=== PATIENT | female | born 1935 | race Caucasian/White ===

== ENCOUNTER 2017-04-13 23:10 | Inpatient (IN) | payer OTHER, MEDICARE ==
[2017-04-13] MEDS ORDERED: ASPIRIN 81 MG CHEWABLE TABLETS PO ONE (23:30)
--- NOTE | 2017-04-13 23:54 | PDOC ---
History of Present Illness - General Chief Complaint: Seizure Stated Complaint: POST SEIZURE Time Seen by Provider: 04/13/17 23:17 History Source: Patient, EMS, Family (daughter) - History of Present Illness Initial Comments: 04/13/17 23:46 The patient is a 81F with a PMH of TIA, a-fib on eliquis, and renal insufficiency who presents to the ED via EMS. The history was provided by EMS and the patient's daughter. The daughter states that the patient was sitting up in her daybed and the daughter was giving her her daily intranasal medications. After giving the second medication, she states that the patient began shaking and her eyes rolled in the back of her head. This lasted for 45-50 seconds. This has never happened before. The patient does not remember this happening. However, she was oriented when she awoke from this episode. The daughter denies any tongue biting. The patient denies any aura or lightheadedness before this episode. Surgeries: none recent Allergies: none Social: quit smoking 3 years ago, does not drink or use recreational drugs Past History - Past Medical History Allergies/Adverse Reactions: Allergies Allergy/AdvReac Type Severity Reaction Status Date / Time No Known Allergies Allergy Verified 04/13/17 23:29 Home Medications: Ambulatory Orders Apixaban [Eliquis] 2.5 mg PO BID 07/22/14 Rosuvastatin Calcium [Crestor] 10 mg PO DAILY 07/22/14 Atenolol [Tenormin -] 50 mg PO BID #60 tablet 09/29/14 Betamethasone Dipr 0.05% Oint [Diprolene] 50 gm TP ASDIR PRN 02/05/15 Fluticasone Propionate [Flovent Diskus] 50 mcg IH BID 02/05/15 Sertraline HCl [Zoloft -] 50 mg PO DAILY 02/05/15 Furosemide [Lasix -] 40 mg PO BID@0600,1400 #60 tablet 02/15/15 Potassium Chloride [K-Dur -] 40 meq PO DAILY #60 tablet.er 02/15/15 Hydrocortisone 2.5% Topical Cr [Anusol-Hc -] 1 applic TP BID #1 tube 04/27/15 Ferrous Sulfate [Feosol] 325 mg PO BID 12/30/15 Ranitidine HCl [Zantac] 150 mg PO ASDIR 12/30/15 Anemia: Yes Asthma: No Cancer: No Cardiac Disorders: Yes (AFIB, ASHD) CVA: (TIA/CVA) COPD: Yes (OXYGEN 3LPM N/C CONTINUOUSLY.) CHF: Yes Dementia: No Diabetes: No GI Disorders: No Disorders: No HTN: Yes Hypercholesterolemia: Yes Liver Disease: No Suicide Attempt (Hx): No Seizures: No Thyroid Disease: No - Surgical History Abdominal Surgery: No Appendectomy: No Cardiac Surgery: (ANGIOGRAM WITH VASCULAR CLOSURE DEVICE RT GROIN) Cholecystectomy: No Lung Surgery: No Neurologic Surgery: No Orthopedic Surgery: Yes (B/L KNEE ARTHROSCOPIES) - Immunization History Immunization Up to Date: Yes - Psycho/Social/Smoking Cessation Hx Anxiety: No Suicidal Ideation: No Smoking Status: Yes Smoking History: Unknown if ever smoked Have you smoked in the past 12 months: No Number of Cigarettes Smoked Daily: 3 If you are a former smoker, when did you quit?: 30 Information on smoking cessation initiated: No 'Breaking Loose' booklet given: 04/25/15 Hx Alcohol Use: No Drug/Substance Use Hx: No Substance Use Type: None Hx Substance Use Treatment: No Review of Systems - Review of Systems Able to Perform ROS?: Yes Is the patient limited [place] proficient: No Constitutional: Yes: Weakness. No: Chills, Fever Respiratory: No: Shortness of Breath Cardiac (ROS): No: Chest Pain ABD/GI: No: Other (abd pain) : No: Burning, Dysuria, Discharge Neurological: No: Headache, Numbness, Tingling *Physical Exam - Vital Signs Last Vital Signs Temp Pulse Resp BP Pulse Ox 97.7 F 89 18 111/73 96 04/13/17 23:29 04/13/17 23:29 04/13/17 23:29 04/13/17 23:29 04/13/17 23:29 Heart Score/ECG Review - QRS Widened: LBBB - ECG Impressions Tachycardia: Afib w/controlled rate Comment:: 04/13/17 23:56 a-fib with RVR ED Treatment Course - LABORATORY CBC & Chemistry Diagram: 04/13/17 23:52 04/13/17 23:52 - RADIOLOGY Radiology Studies Ordered: Category Date Time Status HEAD CT WITHOUT CONTRAST [CT] Stat CT Scan 04/13/17 23:35 Ordered CHEST PA & LAT [RAD] Stat Radiology 04/13/17 23:31 Ordered Medical Decision Making - Medical Decision Making 04/13/17 23:56 Patient is a 81F with a PMH of TIA, a-fib on eliquis, and chronic kidney disease who presents to the ED after a syncopal episode. Her EKG showed a-fib with some RVR. I have ordered a cardiac workup and a head CT. I will monitor for updates and keep the patient posted on results. 04/14/17 01:28 Patient states she is feeling better. Head CT shows 2 small areas of old infarct and one small area in superior L parietal lobe of indeterminate age. *DC/Admit/Observation/Transfer Diagnosis at time of Disposition: Near syncope Chronic renal failure Qualifiers: Chronic kidney disease stage: unspecified stage Qualified Code(s): N18.9 - Chronic kidney disease, unspecified Afib Qualifiers: Atrial fibrillation type: chronic Qualified Code(s): I48.2 - Chronic atrial fibrillation - Discharge Dispostion Admit: Yes - Referrals Referrals: Pepe Jamison MD [Primary Care Provider] - - Transfer to Acute Care Facility Accepting Physician:: barby
[2017-04-14] MEDS ORDERED: ASPIRIN 81 MG CHEWABLE TABLETS ONE
[2017-04-14 00:10] LABS: BASOPHIL 0.4 % (0-2.0); EOSINOPHIL 2.2 % (0-4.5); MCH 30.3 pg (25.7-33.7); MCHC 32.6 g/dl (32.0-36.0); MEAN PLT VOLUME 9.2 fl (7.5-11.1); NEUTROPHILS 74.1 % (42.8-82.8); PLATELET COUNT 136 K/MM3 (134-434); RDW 14.7 % (11.6-15.6); WHITE BLOOD COUNT 5.2 K/mm3 (4.0-10.0)
[2017-04-14 00:21] LABS: INR 1.37 (0.82-1.09); PROTHROMBIN TIME (PATIENT) 15.2 SEC (9.98-11.88)
[2017-04-14 00:32] LABS: ANION GAP 10 (8-16); BILIRUBIN,TOTAL 0.6 mg/dL (0.2-1.0); CALCIUM 9.2 mg/dL (8.5-10.1); CO2 24 mmol/L (21-32); CREATININE 1.7 mg/dL (0.55-1.02); GLUCOSE,RANDOM 118 mg/dL (74-106); MAGNESIUM 2.5 mg/dL (1.8-2.4); SGOT/AST 28 U/L (15-37); SGPT/ALT 17 U/L (12-78); TOT PROT 7.6 g/dl (6.4-8.2)
[2017-04-14 00:35] LABS: ALK PHOS 124 U/L (45-117); TROPONIN I < 0.02 ng/ml (0.00-0.05)
[2017-04-14 04:49] VITALS: BMI 25.5
[2017-04-14 08:24] LABS: MCH 30.6 pg (25.7-33.7); MCHC 33.1 g/dl (32.0-36.0); MEAN CELL VOLUME 92.5 fl (80-96); MEAN PLT VOLUME 9.2 fl (7.5-11.1); PLATELET COUNT 123 K/MM3 (134-434); RDW 14.9 % (11.6-15.6); WHITE BLOOD COUNT 4.8 K/mm3 (4.0-10.0)
--- NOTE | 2017-04-14 08:36 | CON.NEURO ---
Consult - History of Present Illness History of Present Illness: pisode of passing out and shaking 81 year old female hsitory of atrial fibrillation , tia and renal disease. She came to hospital while her daughter was giving her medication intranasally and was puting intranasal catheter for oxygen. Patient suddenly became unresponsive , and she had shaking of upper extremity. Patient says it lasted few seconds while chart it is documented 45-50 seconds. Patients never had seizures. there was no tongue bite , incontinence or post ictal confusion. there was no aura . 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 TIA ?CVA ?? Loo's) Cardio/Vascular: Yes: AFIB (s/p DC cardioversion, now back in AFIB), CHF, HTN, Hyperlipdemia, Mitral Insufficiency, Pulmonary Hypertension Gastrointestinal: Yes: Gastritis Renal/: Yes: Renal Failure, Renal Inusuff (baseline creatinine around 2-2.5) - Past Surgical History Past Surgical History: Yes: Colonoscopy (and EGD 04/14) - Alcohol/Substance Use Hx Alcohol Use: No - Smoking History Smoking history: Former smoker Have you smoked in the past 12 months: No Aproximately how many cigarettes per day: 3 If you are a former smoker, when did you quit?: 2013 - Social History ADL: Independent 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) History of Recent Travel: No Home Medications - Allergies Allergies/Adverse Reactions: Allergies Allergy/AdvReac Type Severity Reaction Status Date / Time No Known Allergies Allergy Verified 04/13/17 23:29 - Home Medications Home Medications: Ambulatory Orders Apixaban [Eliquis] 2.5 mg PO BID 07/22/14 Rosuvastatin Calcium [Crestor] 10 mg PO DAILY 07/22/14 Atenolol [Tenormin -] 50 mg PO BID #60 tablet 09/29/14 Betamethasone Dipr 0.05% Oint [Diprolene] 50 gm TP ASDIR PRN 02/05/15 Fluticasone Propionate [Flovent Diskus] 50 mcg IH BID 02/05/15 Sertraline HCl [Zoloft -] 50 mg PO DAILY 02/05/15 Furosemide [Lasix -] 40 mg PO BID@0600,1400 #60 tablet 02/15/15 Potassium Chloride [K-Dur -] 40 meq PO DAILY #60 tablet.er 02/15/15 Hydrocortisone 2.5% Topical Cr [Anusol-Hc -] 1 applic TP BID #1 tube 04/27/15 Ferrous Sulfate [Feosol] 325 mg PO BID 12/30/15 Ranitidine HCl [Zantac] 150 mg PO ASDIR 12/30/15 Family Disease History - Family Disease History Family Disease History: Heart Disease: Mother, CA: Father (colon), Brother ( colon), Sister (colon) Physical Exam-Neuro Vital Signs: Vital Signs Temperature 98.7 F 04/14/17 03:30 Pulse Rate 73 04/14/17 06:00 Respiratory Rate 18 04/14/17 06:00 Blood Pressure 97/57 04/14/17 06:00 O2 Sat by Pulse Oximetry (%) 98 04/14/17 02:48 Labs: CBC, BMP 04/14/17 05:55 INR, PTT INR 1.37 (0.82-1.09) H 04/13/17 23:52 NIH Stroke Scale - Total Score NIH Stroke Scale Score: 0 Imaging - Results Cat Scan: Report Reviewed Assessment/Plan cc episode of passing out and shaking 81 year old female hsitory of atrial fibrillation , tia and renal disease. She came to hospital while her daughter was giving her medication intranasally and was puting intranasal catheter for oxygen. Patient suddenly became unresponsive , and she had shaking of upper extremity. Patient says it lasted few seconds while chart it is documented 45-50 seconds. Patients never had seizures. there was no tongue bite , incontinence or post ictal confusion. there was no aura . no allergies past medical history as above. no recent surgery outpatient medication Neurological Examination Alert Oriented x 3, follow command eomi and face is symmetrical and speech is normal moving all extremity 5/5 all four ext sensation is normal grossly reflex are generalized diminished ct head unremarkable Assessment- brief episode of shaking and passing out ( ? syncope), since this is first episode and no clearcut evidence in favor of epileptic seizurs , would refrain from starting AED. Plan suggest to do mri of brain and eeg - continue tele monitoring as per Primary Team Thanking you so much Byron Baires MD Neurologist
[2017-04-14 08:39] LABS: ALBUMIN 3.6 g/dl (3.4-5.0); ANION GAP 8 (8-16); BILIRUBIN,TOTAL 0.4 mg/dL (0.2-1.0); CALCIUM 9.4 mg/dL (8.5-10.1); CO2 26 mmol/L (21-32); CREATININE 1.6 mg/dL (0.55-1.02); GLUCOSE,RANDOM 96 mg/dL (74-106); MAGNESIUM 2.4 mg/dL (1.8-2.4); PHOSPHOROUS 3.9 mg/dL (2.5-4.9); SGOT/AST 22 U/L (15-37); SGPT/ALT 16 U/L (12-78); TOT PROT 7.1 g/dl (6.4-8.2)
[2017-04-14 08:42] LABS: ALK PHOS 110 U/L (45-117); TROPONIN I 0.03 ng/ml (0.00-0.05)
[2017-04-14] MEDS: RANITIDINE HCL 150 MG TABLET (FP) PO SCH (09:41)
[2017-04-14] MEDS: FERROUS SO4 325 MG TABLET (FP) PO SCH ×2 (09:41→21:43)
[2017-04-14] MEDS: SERTRALINE HCL 50 MG TABLET (FP) PO SCH (09:41)
[2017-04-14] MEDS: POTASSIUM CHLORIDE TABS 20 MEQ TABLET.ER (FP) PO SCH (09:41)
[2017-04-14] MEDS: APIXABAN 2.5 MG TABLET PO SCH ×2 (09:41→21:43)
[2017-04-14] MEDS: FUROSEMIDE 40 MG TABLET (FP) PO SCH ×2 (11:02→11:21)
[2017-04-14] MEDS: ATENOLOL 50 MG TABLET (FP) PO SCH ×3 (11:02→21:43)
--- NOTE | 2017-04-14 12:02 | HP ---
Admitting History and Physical - Primary Care Physician PCP: Pepe Jamison - Admission Chief Complaint: I don't know what happened History of Present Illness: Ms Correa is a very pleasant 81 year old female who came in with an episode of presyncope/syncope. She was sitting in bed last night and her daughter was assisting giving her intranasal medication. She says during this administration she became woozy. She said it lasted a few seconds and resolved. After that she felt normal. Per note the daughter stated her eyes rolled back and she appeared to about to pass out. Aside from this Ms Correa says she is feeling fine. She denies fevers, chills, passing out, shaking, confusion, chest pain or pressure, shortness of breath, nausea, vomiting, diarrhea, constipation, difficulty or pain on urination, or swelling. 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 TIA ?CVA ?? Loo's) Cardiovascular: Yes: AFIB (s/p DC cardioversion, now back in AFIB), CHF, HTN, Hyperlipdemia, Mitral Insufficiency, Pulmonary Hypertension Gastrointestinal: Yes: Gastritis Renal/: Yes: Renal Failure, Renal Inusuff (baseline creatinine around 2-2.5) Heme/Onc: Yes: Anemia - Past Surgical History Past Surgical History: Yes: Colonoscopy (and EGD 04/14) - Smoking History Smoking history: Former smoker Have you smoked in the past 12 months: No Aproximately how many cigarettes per day: 3 If you are a former smoker, when did you quit?: 2013 - Alcohol/Substance Use Hx Alcohol Use: No History of Substance Use: reports: None - Social History Usual Living Arrangement: Yes: With Child ADL: Independent 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) History of Recent Travel: No Home Medications - Allergies Allergies/Adverse Reactions: Allergies Allergy/AdvReac Type Severity Reaction Status Date / Time No Known Allergies Allergy Verified 04/13/17 23:29 - Home Medications Home Medications: Ambulatory Orders Apixaban [Eliquis] 2.5 mg PO BID 07/22/14 Rosuvastatin Calcium [Crestor] 10 mg PO DAILY 07/22/14 Atenolol [Tenormin -] 50 mg PO BID #60 tablet 09/29/14 Betamethasone Dipr 0.05% Oint [Diprolene] 50 gm TP ASDIR PRN 02/05/15 Fluticasone Propionate [Flovent Diskus] 50 mcg IH BID 02/05/15 Sertraline HCl [Zoloft -] 50 mg PO DAILY 02/05/15 Furosemide [Lasix -] 40 mg PO BID@0600,1400 #60 tablet 02/15/15 Potassium Chloride [K-Dur -] 40 meq PO DAILY #60 tablet.er 02/15/15 Hydrocortisone 2.5% Topical Cr [Anusol-Hc -] 1 applic TP BID #1 tube 04/27/15 Ferrous Sulfate [Feosol] 325 mg PO BID 12/30/15 Ranitidine HCl [Zantac] 150 mg PO ASDIR 12/30/15 Family Disease History - Family Disease History Family Disease History: Heart Disease: Mother, CA: Father (colon), Brother ( colon), Sister (colon) Review of Systems Findings/Remarks: Full review of system obtained, as per HPI and otherwise negative Physical Examination Vital Signs: Vital Signs Temperature 98 F 04/14/17 09:00 Pulse Rate 78 04/14/17 10:40 Respiratory Rate 20 04/14/17 10:40 Blood Pressure 123/68 04/14/17 10:40 O2 Sat by Pulse Oximetry (%) 98 04/14/17 02:48 Constitutional: Yes: Well Nourished, No Distress, Calm Eyes: Yes: Conjunctiva Clear, EOM Intact, PERRL HENT: Yes: Atraumatic, Normocephalic Neck: Yes: Other (no carotid bruit) Cardiovascular: Yes: Pulse Irregular. No: Tachycardia, Gallop, Murmur, Rub Respiratory: Yes: Regular, CTA Bilaterally. No: Rales, Rhonchi, Wheezes Gastrointestinal: Yes: Normal Bowel Sounds, Soft. No: Distention, Tenderness Extremities: Yes: WNL Edema: No Labs: CBC, BMP 04/14/17 05:55 04/14/17 05:55 Imaging - Results Chest X-ray: Report Reviewed, Image Reviewed Problem List - Problems (1) Near syncope Assessment/Plan: -patient with possible syncope -appreciate neurology assistance -mri and eeg -obtain echo and carotid ultrasound -continue telemetry monitoring, possible tachycardia or arrhythmia -orthostatic vital signs since on lasix -cardiology evaluation -PT consult Code(s): R55 - SYNCOPE AND COLLAPSE (2) Afib Assessment/Plan: -controlled -continue atenolol and eliquis Code(s): I48.91 - UNSPECIFIED ATRIAL FIBRILLATION Qualifiers: Atrial fibrillation type: chronic Qualified Code(s): I48.2 - Chronic atrial fibrillation (3) Chronic renal failure Assessment/Plan: -at baseline -continue lasix since with CHF -monitor Code(s): N18.9 - CHRONIC KIDNEY DISEASE, UNSPECIFIED Qualifiers: Chronic kidney disease stage: unspecified stage Qualified Code(s): N18.9 - Chronic kidney disease, unspecified (4) CHF (congestive heart failure) Assessment/Plan: -unsure if systolic or diastolic -continue lasix -obtain ECHO -cardiology to see Code(s): I50.9 - HEART FAILURE, UNSPECIFIED Qualifiers: Congestive heart failure chronicity: chronic (5) HTN (hypertension) Assessment/Plan: -low normal today -will hold atenolol and lasix until later to see if improves Code(s): I10 - ESSENTIAL (PRIMARY) HYPERTENSION (6) Hyperlipidemia Assessment/Plan: -continue crestor Code(s): E78.5 - HYPERLIPIDEMIA, UNSPECIFIED
--- NOTE | 2017-04-14 12:54 | CON.CARD ---
Cardiology Consult (text) - Consultation Consultation Note: cc: possible seizure hpi: 81 f hx mild dementia, dchf, afib, cva (occurred when off ac for procedure ), ckd (cr around 1.5-2), htn, hld, here with possible seizure. Livers with daughter and last night was laying in bed and daughter was giving her evening meds. Pt was feeling well, no sxs. Then all of sudden daughter said she starting shaking and her eyes rolled back. She did not appear to pass out. Less than a minute this stopped and she was back to her normal self, no complaints. Brought to er for eval. No hx of such episodes. No cp, sob, palps , dizzy, pnd, orthopnea, le edema. Sees me for cardio. pmh: per hpi psh: hysterectomy social: no toxic habits fam hx: non contributory ros: per hpi; no nvd, cough, fever, nasal congestion, mathew, vision changes, gib, hematuria, dysuria, muscle pains meds: Home Medications Medication Instructions Recorded Apixaban [Eliquis] 2.5 mg PO BID 07/22/14 Rosuvastatin Calcium [Crestor] 10 mg PO DAILY 07/22/14 Atenolol [Tenormin -] 50 mg PO BID #60 tablet 09/29/14 Betamethasone Dipr 0.05% Oint 50 gm TP ASDIR PRN 02/05/15 [Diprolene] Fluticasone Propionate [Flovent 50 mcg IH BID 02/05/15 Diskus] Sertraline HCl [Zoloft -] 50 mg PO DAILY 02/05/15 Furosemide [Lasix -] 40 mg PO BID@0600,1400 #60 tablet 02/15/15 Potassium Chloride [K-Dur -] 40 meq PO DAILY #60 tablet.er 02/15/15 Hydrocortisone 2.5% Topical Cr 1 applic TP BID #1 tube 04/27/15 [Anusol-Hc -] Ferrous Sulfate [Feosol] 325 mg PO BID 12/30/15 Ranitidine HCl [Zantac] 150 mg PO ASDIR 12/30/15 pe: Vital Signs Period Temp Pulse Resp BP Sys/[place] Pulse Ox Last 24 Hr 97.7 F-98.7 F 66-89 18-20 90-123/50-73 96-98 nad, no jvd irreg, s1s2 no mrg cta bl, nl eff awake alert appropriate no le e/c/c abd nt nd pos bs pos dp/pt, no carotid bruits no diaphoresis, no jaundice Laboratory Last Values WBC 4.8 K/mm3 (4.0-10.0) 04/14/17 05:55 RBC 3.87 M/mm3 (3.60-5.2) 04/14/17 05:55 Hgb 11.8 GM/dL (10.7-15.3) 04/14/17 05:55 Hct 35.8 % (32.4-45.2) 04/14/17 05:55 MCV 92.5 fl (80-96) 04/14/17 05:55 MCH 30.6 pg (25.7-33.7) 04/14/17 05:55 MCHC 33.1 g/dl (32.0-36.0) 04/14/17 05:55 RDW 14.9 % (11.6-15.6) 04/14/17 05:55 Plt Count 123 K/MM3 (134-434) L 04/14/17 05:55 MPV 9.2 fl (7.5-11.1) 04/14/17 05:55 Neutrophils % 74.1 % (42.8-82.8) 04/13/17 23:52 Lymphocytes % 15.3 % (8-40) D 04/13/17 23:52 Monocytes % 8.0 % (3.8-10.2) 04/13/17 23:52 Eosinophils % 2.2 % (0-4.5) 04/13/17 23:52 Basophils % 0.4 % (0-2.0) 04/13/17 23:52 INR 1.37 (0.82-1.09) H 04/13/17 23:52 Sodium 141 mmol/L (136-145) 04/14/17 05:55 Potassium 4.1 mmol/L (3.5-5.1) 04/14/17 05:55 Chloride 107 mmol/L (98-107) 04/14/17 05:55 Carbon Dioxide 26 mmol/L (21-32) 04/14/17 05:55 Anion Gap 8 (8-16) 04/14/17 05:55 BUN 37 mg/dL (7-18) H 04/14/17 05:55 Creatinine 1.6 mg/dL (0.55-1.02) H 04/14/17 05:55 Creat Clearance w eGFR 30.94 (>60) 04/14/17 05:55 Random Glucose 96 mg/dL (74-106) 04/14/17 05:55 Calcium 9.4 mg/dL (8.5-10.1) 04/14/17 05:55 Phosphorus 3.9 mg/dL (2.5-4.9) D 04/14/17 05:55 Magnesium 2.4 mg/dL (1.8-2.4) 04/14/17 05:55 Total Bilirubin 0.4 mg/dL (0.2-1.0) D 04/14/17 05:55 AST 22 U/L (15-37) D 04/14/17 05:55 ALT 16 U/L (12-78) 04/14/17 05:55 Alkaline Phosphatase 110 U/L (45-117) 04/14/17 05:55 Creatine Kinase 38 IU/L (26-192) 04/14/17 05:55 Troponin I 0.03 ng/ml (0.00-0.05) 04/14/17 05:55 Total Protein 7.1 g/dl (6.4-8.2) 04/14/17 05:55 Albumin 3.6 g/dl (3.4-5.0) 04/14/17 05:55 ecg 04/14/17: afib, vr 80s, old lbbb ÁLVARO 01/2013: mod mr, mild-mod tr, trace ar Echo 08/2014: nl lv s/f, nl rv s/f, sev mr, mod-sev tr, mod ai, mod pi, rvsp 50 -60 echo 06/2015: nl lv size, low nl lvef, septal wma c/w lbbb, nl rv, mild sheldon, mod mr, mild ar, mild-mod tr/pr, rvsp mod elevated echo 10/2016: afib, nl lv size, low nl lvef, septal wma c/w lbbb, nl rv, mild sheldon, mod mr, mild ar, minimal , mild tr, mod pr, mild phtn mibi 03/2013: nl mpi carotids 03/2014: mild dz, no sig stenosis carotids 10/2016: mod dz, no sig stenosis.eg cxr: clear lungs a/p: 81 f hx mild dementia, dchf, afib, cva (occurred when off ac for procedure ), ckd (cr around 1.5-2), htn, hld, here with possible seizure. possible syncope vs seizure: -description seems more seizure like -no acute findings on head ct -neuro following and ordered mri brain and eeg -recent office echo and carotids without etiology -ce's neg x2, no signs acs -can monitor on tele, check orthostatics chronic diastolic chf: -Remains euvolemic on current maintenance lasix, continue same. Mitral regurg, ar, tr, pr: -Stable symptoms, nl lv/rv size/fcn on recent echo. Continue lasix. afib: -Rate controlled on bb. H/o prior TIA/CVA may have occurred in the setting of AC being held for egd and colonoscopy. Continue eliquis at low dose. No significant bleeding issues. HTN: Cont home meds. hld: Continue statin. ckd: -cr at baseline
--- NOTE | 2017-04-14 16:24 | EKG ---
Test Reason : Blood Pressure : / mmHG Vent. Rate : 088 BPM Atrial Rate : 147 BPM P-R Int : 000 ms QRS Dur : 144 ms QT Int : 446 ms P-R-T Axes : 000 -65 124 degrees QTc Int : 539 ms ATRIAL FIBRILLATION LEFT AXIS DEVIATION LEFT BUNDLE BRANCH BLOCK ABNORMAL ECG WHEN COMPARED WITH ECG OF 25-APR-2015 11:46, QUESTIONABLE CHANGE IN QRS AXIS NONSPECIFIC T WAVE ABNORMALITY NOW EVIDENT IN INFERIOR LEADS CORELATE CLINICALLY. Confirmed by MIKA DOCKERY MD ([id number]) on 04/14/2017 4:24:02 PM Referred By: Confirmed By:MIKA DOCKERY MD
[2017-04-14] MEDS: MOMETASONE FUROATE 220 MCG/IH INHALER IH SCH (21:41)
[2017-04-14] MEDS ORDERED: ROSUVASTATIN CA 10 MG TABLET (FP) PO SCH (22:00)
[2017-04-15] MEDS: FUROSEMIDE 40 MG TABLET (FP) PO SCH ×2 (06:02→14:15)
[2017-04-15 07:28] LABS: BASOPHIL 0.9 % (0-2.0); EOSINOPHIL 2.7 % (0-4.5); MCH 30.5 pg (25.7-33.7); MCHC 32.9 g/dl (32.0-36.0); MEAN CELL VOLUME 92.7 fl (80-96); MEAN PLT VOLUME 9.6 fl (7.5-11.1); NEUTROPHILS 75.8 % (42.8-82.8); PLATELET COUNT 135 K/MM3 (134-434); RDW 14.8 % (11.6-15.6)
[2017-04-15 07:48] LABS: ANION GAP 9 (8-16); CALCIUM 9.8 mg/dL (8.5-10.1); CO2 23 mmol/L (21-32); CREATININE 1.5 mg/dL (0.55-1.02); GLUCOSE,RANDOM 94 mg/dL (74-106); MAGNESIUM 2.5 mg/dL (1.8-2.4); PHOSPHOROUS 3.7 mg/dL (2.5-4.9)
--- NOTE | 2017-04-15 08:21 | PN ---
Progress Note (short form) - Note Progress Note: cc episode of passing out and shaking 81 year old female hsitory of atrial fibrillation , tia and renal disease. She came to hospital while her daughter was giving her medication intranasally and was puting intranasal catheter for oxygen. Patient suddenly became unresponsive , and she had shaking of upper extremity. Patient says it lasted few seconds while chart it is documented 45-50 seconds. Patients never had seizures. there was no tongue bite , incontinence or post ictal confusion. there was no aura . 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 Plan suggest to increase dose of anticoagulation dose and statin dose Thanking you so much Byron Baires MD Neurologist
[2017-04-15] MEDS: POTASSIUM CHLORIDE TABS 20 MEQ TABLET.ER (FP) PO SCH (09:05)
[2017-04-15] MEDS: FERROUS SO4 325 MG TABLET (FP) PO SCH ×2 (09:05→21:32)
[2017-04-15] MEDS: ATENOLOL 50 MG TABLET (FP) PO SCH ×2 (09:05→21:49)
[2017-04-15] MEDS: RANITIDINE HCL 150 MG TABLET (FP) PO SCH (09:05)
[2017-04-15] MEDS: SERTRALINE HCL 50 MG TABLET (FP) PO SCH (09:05)
[2017-04-15] MEDS: APIXABAN 2.5 MG TABLET PO SCH ×2 (09:06→21:32)
[2017-04-15] MEDS ORDERED: ROSUVASTATIN CA 10 MG TABLET (FP) PO SCH (10:50)
--- NOTE | 2017-04-15 10:56 | PN ---
Progress Note (short form) - Note Progress Note: s: feels well, walking in hallway with PT earlier. No cp sob palps dizzy o: Vital Signs Period Temp Pulse Resp BP Sys/[place] Pulse Ox Last 24 Hr 97.6 F-98.4 F 70-100 18-20 100-124/5-75 96-97 nad, no jvd irreg, s1s2 no mrg cta bl, nl eff awake alert appropriate no le e/c/c abd nt nd pos bs no diaphoresis, no jaundice Current Medications Generic Name Dose Route Start Last Admin Trade Name Freq PRN Reason Stop Dose Admin Apixaban 2.5 mg 04/14/17 10:00 04/15/17 09:06 Eliquis - PO 2.5 mg BID NABEEL Administration Atenolol 50 mg 04/14/17 10:00 04/15/17 09:05 Tenormin - PO 50 mg BID NABEEL Administration Ferrous Sulfate 325 mg 04/14/17 10:00 04/15/17 09:05 Feosol - PO 325 mg BID NABEEL Administration Furosemide 40 mg 04/15/17 06:00 04/15/17 06:02 Lasix - PO 40 mg BIDLASIX NABEEL Administration Mometasone Furoate 1 puff 04/14/17 22:00 04/14/17 21:41 Asmanex 220mcg - IH 1 puff HS NABEEL Administration Potassium Chloride 40 meq 04/14/17 10:00 04/15/17 09:05 K-Dur - PO 40 meq DAILY NABEEL Administration Ranitidine HCl 150 mg 04/14/17 10:00 04/15/17 09:05 Zantac - PO 150 mg DAILY NABEEL Administration Rosuvastatin Calcium 20 mg 04/15/17 10:50 Crestor - PO HS NABEEL Sertraline HCl 50 mg 04/14/17 10:00 04/15/17 09:05 Zoloft - PO 50 mg DAILY NABEEL Administration CBC, BMP 04/15/17 05:35 04/15/17 05:35 ecg 04/14/17: afib, vr 80s, old lbbb ÁLVARO 01/2013: mod mr, mild-mod tr, trace ar Echo 08/2014: nl lv s/f, nl rv s/f, sev mr, mod-sev tr, mod ai, mod pi, rvsp 50 -60 echo 06/2015: nl lv size, low nl lvef, septal wma c/w lbbb, nl rv, mild shledon, mod mr, mild ar, mild-mod tr/pr, rvsp mod elevated echo 10/2016: afib, nl lv size, low nl lvef, septal wma c/w lbbb, nl rv, mild sheldon, mod mr, mild ar, minimal , mild tr, mod pr, mild phtn mibi 03/2013: nl mpi carotids 03/2014: mild dz, no sig stenosis carotids 10/2016: mod dz, no sig stenosis.eg cxr: clear lungs tele: afib, rate controlled a/p: 81 f hx mild dementia, dchf, afib, cva (occurred when off ac for procedure ), ckd (cr around 1.5-2), htn, hld, here with possible seizure. possible syncope vs seizure, acute cva: -description seems more seizure like -MRI shows small acute cva -will increase crestor from 10 to 20 as rec'd by neuro -recent office echo and carotids without etiology -ce's neg x2, no signs acs -tele and orthostatics unremarkable here chronic diastolic chf: -Remains euvolemic on current maintenance lasix, continue same. Mitral regurg, ar, tr, pr: -Stable symptoms, nl lv/rv size/fcn on recent echo. Continue lasix. afib: -Rate controlled on bb. -H/o prior TIA/CVA may have occurred in the setting of AC being held for egd and colonoscopy. -Given her age, wt, and cr, the rec'd dose of eliquis is 2.5 bid, so would continue at the recommended dose. Could add anti-plt such as asa if neuro feels may be of benefit. HTN: Cont home meds. hld: Continue statin. Increased dose as above. ckd: -cr at baseline
--- NOTE | 2017-04-15 12:22 | PN ---
Progress Note, Physician Chief Complaint: Ms Correa is without complaint. No cp, sob, n/v. - Current Medication List Current Medications: Active Medications Apixaban (Eliquis -) 2.5 mg PO BID [facility] Last Admin: 04/15/17 09:06 Dose: 2.5 mg Aspirin (Asa -) 81 mg PO DAILY [facility] Atenolol (Tenormin -) 50 mg PO BID [facility] Last Admin: 04/15/17 09:05 Dose: 50 mg Ferrous Sulfate (Feosol -) 325 mg PO BID [facility] Last Admin: 04/15/17 09:05 Dose: 325 mg Furosemide (Lasix -) 40 mg PO BIDLASIX [facility] Last Admin: 04/15/17 06:02 Dose: 40 mg Mometasone Furoate (Asmanex 220mcg -) 1 puff IH HS [facility] Last Admin: 04/14/17 21:41 Dose: 1 puff Potassium Chloride (K-Dur -) 40 meq PO DAILY [facility] Last Admin: 04/15/17 09:05 Dose: 40 meq Ranitidine HCl (Zantac -) 150 mg PO DAILY [facility] Last Admin: 04/15/17 09:05 Dose: 150 mg Rosuvastatin Calcium (Crestor -) 20 mg PO HS [facility] Sertraline HCl (Zoloft -) 50 mg PO DAILY [facility] Last Admin: 04/15/17 09:05 Dose: 50 mg - Objective Vital Signs: Vital Signs Temperature 98 F 04/15/17 10:00 Pulse Rate 68 04/15/17 10:00 Respiratory Rate 18 04/15/17 10:00 Blood Pressure 108/60 04/15/17 10:00 O2 Sat by Pulse Oximetry (%) 96 04/15/17 06:00 Constitutional: Yes: Well Nourished, No Distress, Calm Cardiovascular: Yes: Pulse Irregular. No: Tachycardia, Gallop, Murmur, Rub Respiratory: Yes: Regular, CTA Bilaterally. No: Rales, Rhonchi, Wheezes Extremities: Yes: WNL Edema: No Labs: INR, PTT INR 1.37 (0.82-1.09) H 04/13/17 23:52 Problem List - Problems (1) Near syncope Code(s): R55 - SYNCOPE AND COLLAPSE (2) Afib Code(s): I48.91 - UNSPECIFIED ATRIAL FIBRILLATION Qualifiers: Atrial fibrillation type: chronic Qualified Code(s): I48.2 - Chronic atrial fibrillation (3) Chronic renal failure Code(s): N18.9 - CHRONIC KIDNEY DISEASE, UNSPECIFIED Qualifiers: Chronic kidney disease stage: unspecified stage Qualified Code(s): N18.9 - Chronic kidney disease, unspecified (4) CHF (congestive heart failure) Code(s): I50.9 - HEART FAILURE, UNSPECIFIED Qualifiers: Congestive heart failure type: diastolic Congestive heart failure chronicity: chronic Qualified Code(s): I50.32 - Chronic diastolic ( congestive) heart failure (5) HTN (hypertension) Code(s): I10 - ESSENTIAL (PRIMARY) HYPERTENSION (6) Hyperlipidemia Code(s): E78.5 - HYPERLIPIDEMIA, UNSPECIFIED Assessment/Plan (1) Acute CVA Assessment/Plan: -found on MRI -neurology note reviewed -increased crestor -unable to increase eliquis, on max dose for age and renal function -will add baby aspirin -PT seeing -carotid ultrasound performed, had recent ECHO as an outpatient -consult speech therapy Code(s): R55 - SYNCOPE AND COLLAPSE (2) Afib Assessment/Plan: -controlled -continue atenolol and eliquis Code(s): I48.91 - UNSPECIFIED ATRIAL FIBRILLATION Qualifiers: Atrial fibrillation type: chronic Qualified Code(s): I48.2 - Chronic atrial fibrillation (3) Chronic renal failure Assessment/Plan: -at baseline -continue lasix since with CHF -monitor Code(s): N18.9 - CHRONIC KIDNEY DISEASE, UNSPECIFIED Qualifiers: Chronic kidney disease stage: unspecified stage Qualified Code(s): N18.9 - Chronic kidney disease, unspecified (4) CHF (congestive heart failure) Assessment/Plan: -appreciate cardiology assistance -chronic diastolic dysfunction, not in exacerbation -continue lasix Code(s): I50.9 - HEART FAILURE, UNSPECIFIED Qualifiers: Congestive heart failure chronicity: chronic (5) HTN (hypertension) Assessment/Plan: -well controlled -continue lasix and atenolol Code(s): I10 - ESSENTIAL (PRIMARY) HYPERTENSION (6) Hyperlipidemia Assessment/Plan: -crestor increased -lipid profile added to morning labs Code(s): E78.5 - HYPERLIPIDEMIA, UNSPECIFIED
--- NOTE | 2017-04-15 13:42 | CONSULT ---
Admitting History and Physical - Primary Care Physician PCP: Raleigh Jackson - Admission History of Present Illness: Per EMR: -" Admission Chief Complaint: I don't know what happened History of Present Illness: Ms Correa is a very pleasant 81 year old female who came in with an episode of presyncope/syncope. She was sitting in bed last night and her daughter was assisting giving her intranasal medication. She says during this administration she became woozy. She said it lasted a few seconds and resolved. After that she felt normal. Per note the daughter stated her eyes rolled back and she appeared to about to pass out. Aside from this Ms Correa says she is feeling fine. She denies fevers, chills, passing out, shaking, confusion, chest pain or pressure, shortness of breath, nausea, vomiting, diarrhea, constipation, difficulty or pain on urination, or swelling." Selected Entries 04/14/17 04/14/17 04/14/17 02:48 03:30 09:00 Breakfast Diet Tolerated Lunch Supper Temperature 98.1 F 98.7 F 98 F 04/14/17 04/14/17 04/14/17 13:57 13:58 18:00 Breakfast 100% Diet Tolerated Well Well Lunch 100% Supper 100% Temperature 97.7 F 97.6 F 04/14/17 04/15/17 04/15/17 22:00 02:00 06:00 Breakfast Diet Tolerated Lunch Supper Temperature 97.9 F 98.0 F 98.4 F 04/15/17 04/15/17 10:00 11:48 Breakfast 100% Diet Tolerated Well Lunch Supper Temperature 98 F Laboratory Tests 04/14/17 04/15/17 05:55 05:35 WBC 4.8 5.0 History Source: Patient Limitations to Obtaining History: No Limitations - Past Medical History [employer]: Yes: CVA, TIA (hx of transient left facial weakness; ? TIA ?CVA ?? Loo's) Cardiovascular: Yes: AFIB (s/p DC cardioversion, now back in AFIB), CHF, HTN, Hyperlipdemia, Mitral Insufficiency, Pulmonary Hypertension Gastrointestinal: Yes: Gastritis Renal/: Yes: Renal Failure, Renal Inusuff (baseline creatinine around 2-2.5) Heme/Onc: Yes: Anemia - Past Surgical History Past Surgical History: Yes: Colonoscopy (and EGD 04/14) - Smoking History Smoking history: Former smoker Have you smoked in the past 12 months: No Aproximately how many cigarettes per day: 3 If you are a former smoker, when did you quit?: 2013 - Alcohol/Substance Use Hx Alcohol Use: No History of Substance Use: reports: None - Social History ADL: Independent 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) History of Recent Travel: No History - Admission Reason For Visit: CHRONIC RENAL FAILURE AFIB NEAR SYNCOPE - Diagnostics X-ray: Report Reviewed CT Scan: Report Reviewed MRI: Report Reviewed - General Mental Status: Alert and Oriented, Awake and Alert, Able to Follow Commands, Vague Ability to Follow Directions: Excellent Head/Neck Control: WFL - Hearing Hearing: Normal Speech Evaluation - Communication Primary Language: CHINESE Communication: Yes: Within Normal Limits Oral Expression Ability: Yes: No Impairment - Speech Production Able to Make Needs Known: Yes: WNL Intelligibility: Yes: WNL - Speech Characteristics Voice Loudness: Normal Voice Pitch: Yes: Normal Voice Phonatory-based Quality: Yes: Normal Speech Pattern: Normal Speech Clarity: < 100% Nasal Resonance: Normal Articulation: Yes: Precise Rate of Speech: Intact - Language/Auditory Comprehension Follows: Yes: Complex Commands - Language/Verbal Expression Able to Respond to Simple Queries: Yes: WNL Able to Communicate Wants and Needs: Yes: WNL Functional Communication Status: Yes: WNL - Memory/Perception adjunct faculty for medical terminology Memory: Yes: WNL Short Term Memory: Yes: WNL - Swallow Evaluation/Bedside Assessment Current Nutritional Intake: Regular, Thin Liquids Oral Secretions: Yes: WFL Dentition: Yes: Missing Teeth Facial Symmetry at Rest: Symmetrical Facial Symmetry on Retraction: Symmetrical Facial Movement: Controlled Sensation: Normal Against Resistance Opening: Normal Against Resistance Closing: Normal Pucker Lips: Normal Smile: Normal Lingual Movement: Normal, Symmetric Lingual Speed of Movement: Normal Lingual Movement Strgth Against Opposition: Normal Lingual Movement Characteristics: Normal Soft Palate Description: Normal Symmetry Hard Palate Description: Normal Symmetry Velopharyngeal Movement: Normal Laryngeal Elevation: WFL Laryngeal Movement: Able to Palpate Rate of Intake: WFL Bolus Size: WFL Labial Seal: WFL Chewing: WFL Oral Prep Time: WFL A-P Transit: WFL Pocketing: None Timing of Swallow: WFL Coughing/Throat Clear: No Change in Voice: No Recommendations - Speech Evaluation, Impression/Plan Impression: Speech/language/swallowing/cognition intact - Dysphagia Impressions/Plan Swallowing Skills: WFL Dysphagia Impressions: No Impairment *Silent aspiration: cannot be R/O at bedside - Recommendations Diet Consistency: Regular Medication Administration: Whole with water Liquids: Thin Liquids
[2017-04-15 15:33] LABS: CHOLESTEROL 133 mg/dL (50-200); LDL CHOLESTEROL (ONLY SJRH) 74 mg/dL (5-100)
[2017-04-15] MEDS: MOMETASONE FUROATE 220 MCG/IH INHALER IH SCH (21:38)
[2017-04-16] MEDS: FUROSEMIDE 40 MG TABLET (FP) PO SCH ×2 (06:14→13:10)
[2017-04-16 07:30] LABS: BASOPHIL 0.8 % (0-2.0); EOSINOPHIL 3.2 % (0-4.5); MCHC 33.6 g/dl (32.0-36.0); MEAN CELL VOLUME 92.1 fl (80-96); MEAN PLT VOLUME 9.1 fl (7.5-11.1); NEUTROPHILS 73.6 % (42.8-82.8); PLATELET COUNT 119 K/MM3 (134-434); RDW 14.7 % (11.6-15.6); WHITE BLOOD COUNT 5.1 K/mm3 (4.0-10.0)
[2017-04-16 07:35] LABS: ANION GAP 9 (8-16); CALCIUM 9.6 mg/dL (8.5-10.1); CO2 27 mmol/L (21-32); CREATININE 1.4 mg/dL (0.55-1.02); GLUCOSE,RANDOM 87 mg/dL (74-106); MAGNESIUM 2.5 mg/dL (1.8-2.4); PHOSPHOROUS 3.4 mg/dL (2.5-4.9)
[2017-04-16] MEDS: SERTRALINE HCL 50 MG TABLET (FP) PO SCH (09:01)
[2017-04-16] MEDS: FERROUS SO4 325 MG TABLET (FP) PO SCH (09:01)
[2017-04-16] MEDS: POTASSIUM CHLORIDE TABS 20 MEQ TABLET.ER (FP) PO SCH (09:01)
[2017-04-16] MEDS: RANITIDINE HCL 150 MG TABLET (FP) PO SCH (09:01)
[2017-04-16] MEDS: APIXABAN 2.5 MG TABLET PO SCH (09:01)
--- NOTE | 2017-04-16 09:15 | PN ---
Progress Note (short form) - Note Progress Note: cc episode of passing out and shaking 81 year old female hsitory of atrial fibrillation , tia and renal disease. She came to hospital while her daughter was giving her medication intranasally and was puting intranasal catheter for oxygen. Patient suddenly became unresponsive , and she had shaking of upper extremity. Patient says it lasted few seconds while chart it is documented 45-50 seconds. Patients never had seizures. there was no tongue bite , incontinence or post ictal confusion. there was no aura . 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, work up has been negative, and no more symptoms and her statin has been increase dand apsirin has been added Neurological Examination Alert Oriented x 3, follow command eomi and face is symmetrical and speech is normal moving all extremity 5/5 all four ext sensation is normal grossly reflex are generalized diminished exam unchanged since yesterday ct head unremarkable mri of brain acute stroke was noticed cartoid ultrasound no stenosis Assessment- brief episode of shaking and passing out could be due to acute stroke, though this is not a typical presentation of stroke or mri findings could be incidental. confur with primary team , increasing dose of statin and adding aspirin , it was discussed with patient there is no active issue from neuro point of view and would see prn Thanking you so much Byron Baires MD Neurologist
[2017-04-16 09:59] VITALS: TEMP 98.4
[2017-04-16] MEDS ORDERED: ASPIRIN 81 MG CHEWABLE TABLETS PO SCH (10:00)
[2017-04-16] MEDS: ATENOLOL 50 MG TABLET (FP) PO SCH (10:02)
--- NOTE | 2017-04-16 11:54 | PN ---
Progress Note, [employer] SURVEYOR - Note Progress Note: Pt is tolerating diet without difficulty. Selected Entries 04/15/17 04/15/17 04/15/17 11:48 14:00 19:14 Breakfast 100% Lunch 75% Supper 75% Temperature 04/16/17 04/16/17 04/16/17 01:00 06:15 09:00 Breakfast Lunch Supper Temperature 97.3 F L 97.8 F 98.4 F Laboratory Tests 04/16/17 05:35 WBC 5.1 No further fr/u indicated at this time.
--- NOTE | 2017-04-16 12:15 | PN ---
Progress Note (short form) - Note Progress Note: s: feels well. No cp sob palps dizzy o: Vital Signs Period Temp Pulse Resp BP Sys/[place] Pulse Ox Last 24 Hr 97.3 F-98.4 F 72-80 18-20 90-117/40-72 95-95 nad, no jvd irreg, s1s2 no mrg cta bl, nl eff awake alert appropriate no le e/c/c abd nt nd pos bs no diaphoresis, no jaundice Current Medications Generic Name Dose Route Start Last Admin Trade Name Freq PRN Reason Stop Dose Admin Apixaban 2.5 mg 04/14/17 10:00 04/16/17 09:01 Eliquis - PO 2.5 mg BID NABEEL Administration Aspirin 81 mg 04/16/17 10:00 04/16/17 09:01 Asa - PO 81 mg DAILY NABEEL Administration Atenolol 50 mg 04/14/17 10:00 04/16/17 10:02 Tenormin - PO 50 mg BID NABEEL Administration Ferrous Sulfate 325 mg 04/14/17 10:00 04/16/17 09:01 Feosol - PO 325 mg BID NABEEL Administration Furosemide 40 mg 04/15/17 06:00 04/16/17 06:14 Lasix - PO 40 mg BIDLASIX NABEEL Administration Mometasone Furoate 1 puff 04/14/17 22:00 04/15/17 21:38 Asmanex 220mcg - IH 1 puff HS NABEEL Administration Potassium Chloride 40 meq 04/14/17 10:00 04/16/17 09:01 K-Dur - PO 40 meq DAILY NABEEL Administration Ranitidine HCl 150 mg 04/14/17 10:00 04/16/17 09:01 Zantac - PO 150 mg DAILY NABEEL Administration Rosuvastatin Calcium 20 mg 04/15/17 10:50 04/15/17 21:32 Crestor - PO 20 mg HS NABEEL Administration Sertraline HCl 50 mg 04/14/17 10:00 04/16/17 09:01 Zoloft - PO 50 mg DAILY NABEEL Administration CBC, BMP 04/16/17 05:35 04/16/17 05:35 ecg 04/14/17: afib, vr 80s, old lbbb ÁLVARO 01/2013: mod mr, mild-mod tr, trace ar Echo 08/2014: nl lv s/f, nl rv s/f, sev mr, mod-sev tr, mod ai, mod pi, rvsp 50 -60 echo 06/2015: nl lv size, low nl lvef, septal wma c/w lbbb, nl rv, mild sheldon, mod mr, mild ar, mild-mod tr/pr, rvsp mod elevated echo 10/2016: afib, nl lv size, low nl lvef, septal wma c/w lbbb, nl rv, mild sheldon, mod mr, mild ar, minimal , mild tr, mod pr, mild phtn echo [facility] 03/2017: sev dec lvef, global hk, mod dil rv, mod reduced rv fcn, mod sheldon, sev mr, mod ar, small eff-->on my review there is septal wma c/w lbbb and lvef is moderately reduced. MR appears more moderate. mibi 03/2013: nl mpi carotids 03/2014: mild dz, no sig stenosis carotids 10/2016: mod dz, no sig stenosis.eg cxr: clear lungs tele: afib, rate controlled a/p: 81 f hx mild dementia, dchf, afib, cva (occurred when off ac for procedure ), ckd (cr around 1.5-2), htn, hld, here with possible seizure. possible syncope vs seizure, acute cva: -description seems more seizure like -MRI shows small acute cva -will increase crestor from 10 to 20 as rec'd by neuro -recent office echo and carotids without etiology -ce's neg x2, no signs acs -tele and orthostatics unremarkable here chronic diastolic/systolic chf: -echo here reviewed, shows moderately reduced lvef. -Remains euvolemic on current maintenance lasix, continue same. -cont bb. -has ckd and low bp so cannot tolerate susan/arb or hydralazine/imdur for chf regimen Mitral regurg, ar, tr, pr: -Stable symptoms, similar findings on current echo on my review. Continue lasix. afib: -Rate controlled on bb. -H/o prior TIA/CVA may have occurred in the setting of AC being held for egd and colonoscopy. -Given her age, wt, and cr, the rec'd dose of eliquis is 2.5 bid, so would continue at the recommended dose. Could add anti-plt such as asa if neuro feels may be of benefit. HTN: Cont home meds. hld: Continue statin. Increased dose as above. ckd: -cr at baseline cardiac goodrich stable for dc
--- NOTE | 2017-04-16 12:33 | DS ---
Physical Examination Vital Signs: Vital Signs Temperature 98.4 F 04/16/17 09:00 Pulse Rate 79 04/16/17 10:04 Respiratory Rate 18 04/16/17 09:00 Blood Pressure 114/64 04/16/17 10:04 O2 Sat by Pulse Oximetry (%) 95 04/16/17 09:00 Constitutional: Yes: Well Nourished, No Distress, Calm Cardiovascular: Yes: Regular Rate and Rhythm. No: Gallop, Murmur, Rub Respiratory: Yes: Regular, CTA Bilaterally. No: Rales, Rhonchi, Wheezes Gastrointestinal: Yes: Normal Bowel Sounds, Soft. No: Distention, Tenderness Extremities: Yes: WNL Edema: No Labs: CBC, BMP 04/16/17 05:35 04/16/17 05:35 Discharge Summary Reason For Visit: CHRONIC RENAL FAILURE AFIB NEAR SYNCOPE Current Active Problems Afib (Acute) Near syncope (Acute) Chronic renal failure (Chronic) Hospital Course: (1) Acute CVA Code(s): R55 - SYNCOPE AND COLLAPSE (2) Afib Code(s): I48.91 - UNSPECIFIED ATRIAL FIBRILLATION Qualifiers: Atrial fibrillation type: chronic Qualified Code(s): I48.2 - Chronic atrial fibrillation (3) Chronic renal failure Code(s): N18.9 - CHRONIC KIDNEY DISEASE, UNSPECIFIED Qualifiers: Chronic kidney disease stage: unspecified stage Qualified Code(s): N18.9 - Chronic kidney disease, unspecified (4) CHF (congestive heart failure) Code(s): I50.9 - HEART FAILURE, UNSPECIFIED Qualifiers: Congestive heart failure chronicity: chronic (5) HTN (hypertension) Code(s): I10 - ESSENTIAL (PRIMARY) HYPERTENSION (6) Hyperlipidemia Code(s): E78.5 - HYPERLIPIDEMIA, UNSPECIFIED Ms Correa is a very pleasant 81 year old female who came in with questionable syncope and was found to have an acute CVA on MRI. She was originally admitted to telemetry on observation. She was seen by neurology and cardiology. She had CT scan which was negative and ECHO/carotid ultrasound as well. She had an MRI which showed an acute CVA. She was seen by PT and ST. Her crestor was increased. Aspirin was added to her eliquis. She is currently symptom free and is safe to go home with daughter. 32 minutes spent in preparation of this discharge Condition: Good - Instructions Diet, Activity, Other Instructions: resume previous diet and activity Referrals: Pepe Jamison MD [Primary Care Provider] - Michele Easton MD [Staff Physician] - Byron Baires MD [Staff Physician] - Disposition: HOME - Home Medications Comprehensive Discharge Medication List: Ambulatory Orders Apixaban [Eliquis] 2.5 mg PO BID 07/22/14 Atenolol [Tenormin -] 50 mg PO BID #60 tablet 09/29/14 Betamethasone Dipr 0.05% Oint [Diprolene] 50 gm TP ASDIR PRN 02/05/15 Fluticasone Propionate [Flovent Diskus] 50 mcg IH BID 02/05/15 Sertraline HCl [Zoloft -] 50 mg PO DAILY 02/05/15 Furosemide [Lasix -] 40 mg PO BID@0600,1400 #60 tablet 02/15/15 Potassium Chloride [K-Dur -] 40 meq PO DAILY #60 tablet.er 02/15/15 Hydrocortisone 2.5% Topical Cr [Anusol-Hc -] 1 applic TP BID #1 tube 04/27/15 Ferrous Sulfate [Feosol] 325 mg PO BID 12/30/15 Ranitidine HCl [Zantac] 150 mg PO ASDIR 12/30/15 Aspirin [ASA -] 81 mg PO DAILY tab.chew 04/16/17 Rosuvastatin [Crestor -] 20 mg PO HS #30 tablet 04/16/17
[2017-04-16 13:12] VITALS: BP 100/55; PULSE 89
== END 2017-04-16 13:44 | disposition home or self-care (01) | DRG 65 ==
LOC: JER 23:10 → JERBED 04-14 01:50 → INTOOBSV 04-14 02:08 → JERBED 04-14 02:08 → UNDOADMOB 04-14 02:08 → J4W 04-14 04:02 → JERBED 04-14 04:02 → OBSVTOIN 04-15 11:11
PROVIDERS: ADMIT Internal Medicine; ATTEND Internal Medicine
PROC: 4A00X4Z Measurement of Central Nervous Electrical Activity, External Approach (ICD-10-PCS; principal; 2017-04-14)
DX: I63.9 Cerebral infarction, unspecified (principal); I13.0 Hypertensive heart and chronic kidney disease with heart failure and stage 1 through stage 4 chronic kidney disease, or unspecified chronic kidney disease; I50.32 Chronic diastolic (congestive) heart failure; I48.2 Chronic atrial fibrillation; Z79.01 Long term (current) use of anticoagulants; Z86.73 Personal history of transient ischemic attack (TIA), and cerebral infarction without residual deficits; N18.9 Chronic kidney disease, unspecified; E78.5 Hyperlipidemia, unspecified; I34.0 Nonrheumatic mitral (valve) insufficiency; D64.9 Anemia, unspecified
CPT/HCPCS: 36415; 70450-TC; 70551-TC; 71020-TC; 80048; 80053; 80061; 82550; 83721; 83735; 84100; 84484; 85025; 85027; 85610; 93005; 93010; 93306-TC; 93880-TC; 95816; 97116-GP; 97161-GP; 99283-25; G0378

== ENCOUNTER 2017-08-07 22:07 | Inpatient (IN) | payer OTHER, MEDICARE ==
--- NOTE | 2017-08-07 22:31 | PDOC ---
History of Present Illness - General History Source: Patient Exam Limitations: No Limitations - History of Present Illness Initial Comments: 08/07/17 22:53 The patient is an 82 year old female with hypertension, hyperlipidemia, atrial fibrillation on Eliquis, s/p CVA/TIA brought in by EMS for generalized weakness and shaking that began this evening. Per the daughter at bedside, the patient was getting ready for bed when she began shaking for a brief episode. The patient reports an associated headache during this time. A similar episode occurred in March 2017 when the patient was found to have acute CVA on brain MRI. No numbness or tingling. No chest pain or shortness of breath. No loss of consciousness. Patient's symptoms are improved upon ED arrival. <Crystal Coleman - Last Filed: 08/07/17 22:59> <Rosa Maria Weiss - Last Filed: 08/08/17 04:27> - General Stated Complaint: CVA/TIA Time Seen by Provider: 08/07/17 22:20 Past History <Crystal Coleman - Last Filed: 08/07/17 22:59> - Past Medical History Anemia: Yes Asthma: No Cancer: No Cardiac Disorders: Yes (AFIB, ASHD) CVA: (TIA/CVA) COPD: Yes (OXYGEN 3LPM N/C CONTINUOUSLY.) CHF: Yes Dementia: No Diabetes: No GI Disorders: No Disorders: No HTN: Yes Hypercholesterolemia: Yes Liver Disease: No Seizures: No Thyroid Disease: No - Surgical History Abdominal Surgery: No Appendectomy: No Cardiac Surgery: (ANGIOGRAM WITH VASCULAR CLOSURE DEVICE RT GROIN) Cholecystectomy: No Lung Surgery: No Neurologic Surgery: No Orthopedic Surgery: Yes (B/L KNEE ARTHROSCOPIES) - Immunization History Immunization Up to Date: Yes - Suicide/Smoking/Psychosocial Hx Smoking Status: Yes Smoking History: Unknown if ever smoked Have you smoked in the past 12 months: No Number of Cigarettes Smoked Daily: 3 If you are a former smoker, when did you quit?: 30 'Breaking Loose' booklet given: 04/25/15 Hx Alcohol Use: No Drug/Substance Use Hx: No Substance Use Type: None Hx Substance Use Treatment: No <Rosa Maria Weiss - Last Filed: 08/08/17 04:27> - Past Medical History Allergies/Adverse Reactions: Allergies Allergy/AdvReac Type Severity Reaction Status Date / Time No Known Allergies Allergy Verified 08/07/17 22:34 Home Medications: Ambulatory Orders Apixaban [Eliquis] 2.5 mg PO BID 07/22/14 Atenolol [Tenormin -] 50 mg PO BID #60 tablet 09/29/14 Betamethasone Dipr 0.05% Oint [Diprolene] 50 gm TP ASDIR PRN 02/05/15 Fluticasone Propionate [Flovent Diskus] 50 mcg IH BID 02/05/15 Sertraline HCl [Zoloft -] 50 mg PO DAILY 02/05/15 Furosemide [Lasix -] 40 mg PO BID@0600,1400 #60 tablet 02/15/15 Potassium Chloride [K-Dur -] 40 meq PO DAILY #60 tablet.er 02/15/15 Hydrocortisone 2.5% Topical Cr [Anusol-Hc -] 1 applic TP BID #1 tube 04/27/15 Ferrous Sulfate [Feosol] 325 mg PO BID 12/30/15 Ranitidine HCl [Zantac] 150 mg PO ASDIR 12/30/15 Aspirin [ASA -] 81 mg PO DAILY tab.chew 04/16/17 Rosuvastatin [Crestor -] 20 mg PO HS #30 tablet 04/16/17 Review of Systems - Review of Systems Able to Perform ROS?: Yes Comments:: 08/07/17 23:03 GENERAL/CONSTITUTIONAL: +Weakness. No fever or chills. HEAD, EYES, EARS, NOSE AND THROAT: No change in vision. No ear pain or discharge. No sore throat. CARDIOVASCULAR: No chest pain or shortness of breath. RESPIRATORY: No cough, wheezing, or hemoptysis. GASTROINTESTINAL: No nausea, vomiting, diarrhea or constipation. GENITOURINARY: No dysuria, frequency, or change in urination. MUSCULOSKELETAL: No joint or muscle swelling or pain. No neck or back pain. SKIN: No rash NEUROLOGIC: +Generalized shaking, headache. No vertigo, loss of consciousness, or change in strength/sensation. ENDOCRINE: No increased thirst. No abnormal weight change. HEMATOLOGIC/LYMPHATIC: No anemia, easy bleeding, or history of blood clots. ALLERGIC/IMMUNOLOGIC: No hives or skin allergy. <Crystal Coleman - Last Filed: 08/07/17 22:59> *Physical Exam - Vital Signs Last Vital Signs Temp Pulse Resp BP Pulse Ox 97.3 F L 57 L 14 88/60 93 L 08/07/17 22:34 08/07/17 22:34 08/07/17 22:34 08/07/17 22:34 08/07/17 22:34 - Physical Exam Comments: 08/07/17 23:04 GENERAL: Awake, alert, and fully oriented, in no acute distress HEAD: No signs of trauma EYES: PERRLA, EOMI, sclera anicteric, conjunctiva clear ENT: Auricles normal inspection, hearing grossly normal, nares patent, oropharynx clear without exudates. +Dry oral mucosa. NECK: Normal ROM, supple, no lymphadenopathy, JVD, or masses LUNGS: Breath sounds equal, clear to auscultation bilaterally. No wheezes, and no crackles HEART: +tachycardia, irregularly irregular rhythm. Normal S1 and S2, no murmurs , rubs or gallops ABDOMEN: Soft, nontender, normoactive bowel sounds. No guarding, no rebound. No masses EXTREMITIES: Normal range of motion, no edema. No clubbing or cyanosis. No cords, erythema, or tenderness NEUROLOGICAL: Cranial nerves II through XII grossly intact. See NIHSS. SKIN: Warm, Dry, normal turgor, no rashes or lesions noted. <Crystal Coleman - Last Filed: 08/07/17 22:59> ED Treatment Course - LABORATORY CBC & Chemistry Diagram: 08/07/17 23:23 08/08/17 01:23 <Rosa Maria Weiss - Last Filed: 08/08/17 04:27> Medical Decision Making - Medical Decision Making 08/08/17 00:49 Pt comes with rapid afib and dehydration. Her daughter spent the whole day with her and when she was putting her to bed, pt began twitching and her tongue started shaking "seizure like" as per daughter. Pt was slightly altered mental status. Confused, however in the ER, pt is alert and answering questions and her NIHSS is zero. Pt is afebrile and she is in no distress. She states that she has a mid headache. 08/08/17 00:50 Pt's labs are normal. Her BUN and Cr are slightly elevated, but at her baseline. She has some blood and protein in her urine, but no UTI. 08/08/17 01:23 Patient Name: CONRAD FORREST THIS IS A PRELIMINARY REPORT FROM [facility] DATE OF SERVICE: 2017-08-08 00:35:37 IMAGES: 138 EXAM: CT HEAD WITHOUT CONTRAST No acute brain parenchymal abnormality. No hemorrhage, mass or acute territorial infarct. Age-related involutional changes and chronic small vessel ischemic changes. Small chronic infarct left parietal lobe. Minimal mucoperiosteal thickening paranasal sinuses. Mucus retention cyst left maxillary sinus. Visualized mastoid air cells clear. Tiny gas bubbles in right maxillary soft tissues, right temporal scalp and right cavernous sinus, probably related to recent IV injection. THIS DOCUMENT HAS BEEN ELECTRONICALLY SIGNED 08/08/17 04:22 08/08/17 04:25 Pt will be admitted to the hospitalist service, as her PMD Dr. oconnor and his associates do not admit patients on the weekends. <Rosa Maria Weiss - Last Filed: 08/08/17 04:27> *DC/Admit/Observation/Transfer - Attestations Scribe Attestion: 08/07/17 23:05 Documentation prepared by Crystal Coleman, acting as medical physicist for Rosa Maria Weiss MD. <Crystal Coleman - Last Filed: 08/07/17 22:59> - Discharge Dispostion Admit: Yes <Rosa Maria Weiss - Last Filed: 08/08/17 04:27> Diagnosis at time of Disposition: Shortness of breath, Rapid atrial fibrillation, Dehydration, Hypotensive episode, Altered mental status, unspecified - Discharge Dispostion Condition at time of disposition: Poor
[2017-08-07] MEDS ORDERED: ATROPINE SULFATE 1 MG/10 ML DISP.SYRIN ONE (22:33)
--- NOTE | 2017-08-07 22:49 | PDOC ---
NIH Stroke Scale - Last Known Well Date/Time & Onset Time Last Known Well: 09:30 <Crystal Coleman - Last Filed: 08/07/17 23:19> - Last Known Well Date/Time & Onset Date Last Known Well: 08/07/17 Time Last Known Well: 21:30 - Initial Evaluation Level of consciousness: Alert Ask patient the month and their age: Answers both correctly Ask patient to open & close eyes; make fist and let go: Obeys both correctly Best gaze (horizontal eye movement): Normal Visual field testing: No visual field loss Facial paresis (Show teeth/raise eyebrows/close eyes tight): Normal symmetrical movement Motor Function: Left Arm: Normal Motor Function: Right Arm: Normal (extends arm 90 (or 45) degrees for 10 seconds without drift Motor Function: Left Leg: Normal (extends leg 30 degrees for 5 seconds without drift) Motor Function: Right Leg: Normal (extends leg 30 degrees for 5 seconds without drift) Limb Ataxia: No ataxia Sensory(Use pinprick test arms,legs,trunk,face/side to side): Normal Best language (Describe picture, name items, read sentences): No Aphasia Dysarthria (read several words): Normal articulation Extinction and Inattention: No abnormality - Total Score NIH Stroke Scale Score: 0 <Rosa Maria Weiss - Last Filed: 08/08/17 02:34> tPA Exclusion Checklist 0-3hr - Ineligibility reason(s) Reasons No tPA given: See reason(s) noted above (NIHSS 0) <Crystal Coleman - Last Filed: 08/07/17 23:19>
[2017-08-07 23:42] LABS: BASOPHIL 0.6 % (0-2.0); EOSINOPHIL 1.5 % (0-4.5); MCH 30.9 pg (25.7-33.7); MCHC 33.4 g/dl (32.0-36.0); MEAN CELL VOLUME 92.4 fl (80-96); MEAN PLT VOLUME 10.3 fl (7.5-11.1); PLATELET COUNT 141 K/MM3 (134-434); RDW 13.9 % (11.6-15.6)
[2017-08-07] MEDS ORDERED: SODIUM CHLORIDE 0.9% 500 ML INFUS.BAG IV ONE (23:48)
[2017-08-07 23:53] LABS: INR 1.57 (0.82-1.09); PROTHROMBIN TIME (PATIENT) 17.7 SEC (9.98-11.88)
[2017-08-08 02:10] LABS: ALBUMIN 3.6 g/dl (3.4-5.0); ANION GAP 11 (8-16); BILIRUBIN,TOTAL 0.4 mg/dL (0.2-1.0); CALCIUM 8.4 mg/dL (8.5-10.1); CO2 23 mmol/L (21-32); CREATININE 1.7 mg/dL (0.55-1.02); GLUCOSE,RANDOM 112 mg/dL (74-106); SGOT/AST 64 U/L (15-37); SGPT/ALT 42 U/L (12-78); TOT PROT 7.1 g/dl (6.4-8.2)
[2017-08-08 02:13] LABS: ALK PHOS 124 U/L (45-117); CPK 69 IU/L (26-192); TROPONIN I 0.04 ng/ml (0.00-0.05)
[2017-08-08] MEDS ORDERED: ASPIRIN 81 MG CHEWABLE TABLETS PO ONE (03:19)
[2017-08-08 04:11] LABS: URINE APPEARANCE SLCLOUDY; URINE BILIRUBIN NEGATIVE (NEGATIVE); URINE BLOOD 2+ (NEGATIVE); URINE COLOR LTYELLOW; URINE GLUCOSE (UA) NEGATIVE (NEGATIVE); URINE KETONE NEGATIVE (NEGATIVE); URINE NITRITE NEGATIVE (NEGATIVE); URINE UROBILINOGEN NEGATIVE mg/dL (0.2-1.0)
[2017-08-08 04:14] LABS: URINE PROTEIN 1+ (NEGATIVE)
[2017-08-08 04:17] LABS: URINE BACTERIA RARE /hpf (NONE SEEN); URINE RBC 5; URINE WBC 2
--- NOTE | 2017-08-08 04:26 | HP ---
CHIEF COMPLAINT: an episode of shaking and AMS PCP: Dr. Jamison Elevator Inspector: Dr. Easton HISTORY OF PRESENT ILLNESS: 82yo F with PMH of afib (on Eliquis), COPD (on 3L O2 at home), CHF, CKD, htn, presenting with an episode of shaking and AMS. Pt is awake and alert, but not verbally responsive to questions. History obtained from daughter at bedside and the EMR. Pt was in bed at 9pm, daughter had just helped pt to bed and was still present to witness pt have a "seizure", an episode of shaking. Pt did not fall, hit head, or lose consciousness. Daughter reports pt did vomit (nbnb ) once after this episode. Since the incident, pt has had slurred and garbled speech. Pt had a similar episode in 03/2017 (her last adm), when pt was found to have an acute CVA on Brain MRI. Pt has no hx of seizures. Original NIH Stoke Scale at 21:30 was 0. (-) fever, LOC. ER course was notable for: (1) NS 1 L bolus (2) EKG -> afib with RVR (3) Head CT -> no evidence of acute brain parenchymal abnormality. PAST MEDICAL HISTORY: afib (on Eliquis) COPD (on 3L O2 via nasal cannula at home) CHF CKD htn hld anemia PAST SURGICAL HISTORY: angiogram anca knee arthroscopies Social History: Smoking: former, quit many years ago Alcohol: (-) Drugs: (-) Allergies No Known Allergies Allergy (Verified 08/07/17 22:34) HOME MEDICATIONS: Home Medications Medication Instructions Recorded Apixaban [Eliquis] 2.5 mg PO BID 07/22/14 Atenolol [Tenormin -] 50 mg PO BID #60 tablet 09/29/14 Betamethasone Dipr 0.05% Oint 50 gm TP ASDIR PRN 02/05/15 [Diprolene] Fluticasone Propionate [Flovent 50 mcg IH BID 02/05/15 Diskus] Sertraline HCl [Zoloft -] 50 mg PO DAILY 02/05/15 Furosemide [Lasix -] 40 mg PO BID@0600,1400 #60 tablet 02/15/15 Potassium Chloride [K-Dur -] 40 meq PO DAILY #60 tablet.er 02/15/15 Hydrocortisone 2.5% Topical Cr 1 applic TP BID #1 tube 04/27/15 [Anusol-Hc -] Ferrous Sulfate [Feosol] 325 mg PO BID 12/30/15 Ranitidine HCl [Zantac] 150 mg PO ASDIR 12/30/15 Aspirin [ASA -] 81 mg PO DAILY tab.chew 04/16/17 Rosuvastatin [Crestor -] 20 mg PO HS #30 tablet 04/16/17 REVIEW OF SYSTEMS Unable to perform as pt not verbally responsive. PHYSICAL EXAMINATION Vital Signs - 24 hr 08/07/17 22:34 Temperature 97.3 F L Pulse Rate 57 L Respiratory 14 Rate Blood Pressure 88/60 O2 Sat by Pulse 93 L Oximetry (%) GENERAL: Awake, alert, in no acute distress. HEAD: Normal with no signs of trauma. EYES: Pupils equal, round and reactive to light, extraocular movements intact, sclera anicteric, conjunctiva clear. No lid lag. EARS, NOSE, THROAT: Dry mucous membranes. NECK: Supple, trachea midline. LUNGS: Bibasilar crackles appreciated. No wheeze. HEART: irregularly irregular, (+) tachycardia, +S1/S2. ABDOMEN: Soft, nontender, not distended, hypoactive bowel sounds. MUSCULOSKELETAL: Normal range of motion at all joints. No bony deformities or tenderness. No CVA tenderness. LOWER EXTREMITIES: Warm, well-perfused. No calf tenderness. No peripheral edema. NEUROLOGICAL: Unable to assess as pt uncooperative. SKIN: Warm, dry, normal turgor, no rashes or lesions noted. Laboratory Results - last 24 hr 08/07/17 08/07/17 08/07/17 23:23 23:23 23:23 WBC 7.0 D RBC 4.06 Hgb 12.5 Hct 37.5 MCV 92.4 MCH 30.9 MCHC 33.4 RDW 13.9 Plt Count 141 MPV 10.3 D Neutrophils % 81.0 Lymphocytes % 9.9 D Monocytes % 7.0 Eosinophils % 1.5 Basophils % 0.6 PT with INR 17.70 H INR 1.57 H Sodium Cancelled Potassium Cancelled Chloride Cancelled Carbon Dioxide Cancelled Anion Gap Cancelled BUN Cancelled Creatinine Cancelled Creat Clearance w eGFR Cancelled Random Glucose Cancelled Calcium Cancelled Total Bilirubin Cancelled AST Cancelled ALT Cancelled Alkaline Phosphatase Cancelled Creatine Kinase Cancelled Troponin I Cancelled Total Protein Cancelled Albumin Cancelled 08/08/17 01:23 WBC RBC Hgb Hct MCV MCH MCHC RDW Plt Count MPV Neutrophils % Lymphocytes % Monocytes % Eosinophils % Basophils % PT with INR INR Sodium 143 Potassium 4.5 Chloride 109 H Carbon Dioxide 23 Anion Gap 11 BUN 31 H Creatinine 1.7 H D Creat Clearance w eGFR 28.77 Random Glucose 112 H D Calcium 8.4 L Total Bilirubin 0.4 AST 64 H D ALT 42 D Alkaline Phosphatase 124 H Creatine Kinase 69 Troponin I 0.04 Total Protein 7.1 Albumin 3.6 IMAGIN08/08/[address] -> prelim read: no acute brain parenchymal abnormality ASSESSMENT/PLAN: 82yo F with PMH of afib (on Eliquis), COPD (on 3L O2 at home), CHF, CKD, htn, presenting with an episode of shaking, admitted to Telemetry for AMS and afib. # AMS - UA (-) for UTI - no s/s of infection - Neuro Consult - consider f/u Head CT # afib - continue Eliquis - continue home med of Tenormin, BB # CHF - last echo 10/2016 -> severe Left ventricular dysfunction - continue home med of Lasix # COPD - continue O2 prn - continue Asmanex # CKD - baseline Cr ~1.5 - continue to monitor # htn - continue home med of Tenormin # hld - continue home med of Crestor # FEN - Fluids: encourage po - Electrolytes: wnl, continue to monitor - Nutrition: regular diet -> passed bedside swallow eval # Prophylaxis - DVT ppx with Eliquis Visit type - Emergency Visit Emergency Visit: Yes ED Registration Date: 08/08/17 Care time: The patient presented to the Emergency Department on the above date and was hospitalized for further evaluation of their emergent condition. - New Patient This patient is new to me today: Yes Date on this admission: 08/08/17 - Critical Care Critical Care patient: No
[2017-08-08] MEDS: FUROSEMIDE 40 MG TABLET (FP) PO SCH ×2 (06:05→13:03)
[2017-08-08] MEDS ORDERED: FUROSEMIDE 40 MG/4 ML INJECTABLE VIAL ONE (06:41)
[2017-08-08 06:47] LABS: MCHC 33.4 g/dl (32.0-36.0); MEAN PLT VOLUME 8.9 fl (7.5-11.1); PLATELET COUNT 168 K/MM3 (134-434); WHITE BLOOD COUNT 7.4 K/mm3 (4.0-10.0)
[2017-08-08 07:11] LABS: ALBUMIN 3.7 g/dl (3.4-5.0); ANION GAP 8 (8-16); BILIRUBIN,TOTAL 0.5 mg/dL (0.2-1.0); CALCIUM 8.7 mg/dL (8.5-10.1); CO2 24 mmol/L (21-32); CREATININE 1.8 mg/dL (0.55-1.02); GLUCOSE,RANDOM 119 mg/dL (74-106); MAGNESIUM 2.5 mg/dL (1.8-2.4); PHOSPHOROUS 3.9 mg/dL (2.5-4.9); SGOT/AST 50 U/L (15-37); SGPT/ALT 38 U/L (12-78); TOT PROT 7.1 g/dl (6.4-8.2)
[2017-08-08 07:13] LABS: ALK PHOS 119 U/L (45-117); TROPONIN I 0.03 ng/ml (0.00-0.05)
--- NOTE | 2017-08-08 07:45 | PN ---
Teaching Attending Note Name of Resident: Annabella Friedman ATTENDING PHYSICIAN STATEMENT I saw and evaluated the patient. I reviewed the resident's note and discussed the case with the resident. I agree with the resident's findings and plan as documented. SUBJECTIVE:Patient brought in after noted to have shaking and AMS as per daughter, this episode was similar to her prior CVA. Patient had slurred speech and left sided weakness, which has somewhat resolved on evaluation in ED OBJECTIVE: GEN: A&Ox2 in NAD HEENT: NC, AT, PERRLA, EOMI, oral mucosa dry CVS: Irregular rhythm Lungs: CTA no wheezing Abd: Soft, NT, ND, BS+ Ext: Left leg weakness, normal pulse Neuro: CN2-12 intact, slurred speech CBCD WBC 7.4 K/mm3 (4.0-10.0) 08/08/17 06:35 RBC 3.94 M/mm3 (3.60-5.2) 08/08/17 06:35 Hgb 12.2 GM/dL (10.7-15.3) 08/08/17 06:35 Hct 36.6 % (32.4-45.2) 08/08/17 06:35 MCV 93.0 fl (80-96) 08/08/17 06:35 MCHC 33.4 g/dl (32.0-36.0) 08/08/17 06:35 RDW 14.0 % (11.6-15.6) 08/08/17 06:35 Plt Count 168 K/MM3 (134-434) 08/08/17 06:35 MPV 8.9 fl (7.5-11.1) D 08/08/17 06:35 CMP Sodium 142 mmol/L (136-145) 08/08/17 06:35 Potassium 4.6 mmol/L (3.5-5.1) 08/08/17 06:35 Chloride 110 mmol/L (98-107) H 08/08/17 06:35 Carbon Dioxide 24 mmol/L (21-32) 08/08/17 06:35 Anion Gap 8 (8-16) 08/08/17 06:35 BUN 32 mg/dL (7-18) H 08/08/17 06:35 Creatinine 1.8 mg/dL (0.55-1.02) H 08/08/17 06:35 Creat Clearance w eGFR 26.94 (>60) 08/08/17 06:35 Calcium 8.7 mg/dL (8.5-10.1) 08/08/17 06:35 Total Bilirubin 0.5 mg/dL (0.2-1.0) D 08/08/17 06:35 AST 50 U/L (15-37) H D 08/08/17 06:35 ALT 38 U/L (12-78) 08/08/17 06:35 Alkaline Phosphatase 119 U/L (45-117) H 08/08/17 06:35 Total Protein 7.1 g/dl (6.4-8.2) 08/08/17 06:35 Albumin 3.7 g/dl (3.4-5.0) 08/08/17 06:35 Current Medications Generic Name Dose Route Start Last Admin Trade Name Freq PRN Reason Stop Dose Admin Apixaban 2.5 mg 08/08/17 10:00 Eliquis - PO BID NABEEL Aspirin 81 mg 08/08/17 10:00 Asa - PO DAILY NABEEL Atenolol 50 mg 08/08/17 10:00 Tenormin - PO BID NABEEL Furosemide 40 mg 08/08/17 06:00 08/08/17 06:05 Lasix - PO 40 mg BID@0600,1400 NABEEL Administration Mometasone Furoate 1 puff 08/08/17 22:00 Asmanex 220mcg - IH HS NABEEL Ranitidine HCl 150 mg 08/08/17 10:00 Zantac - PO DAILY NABEEL Rosuvastatin Calcium 20 mg 08/08/17 22:00 Crestor - PO HS NABEEL Sertraline HCl 50 mg 08/08/17 10:00 Zoloft - PO DAILY NABEEL ASSESSMENT AND PLAN: CVA vs TIA- Stroke workup Aggrenox as patient had repeated stroke on aspirin and hold eliquis Continue home medications. statins. consult neurology rapid swallow test passed can start diet and aspiration precautions. Speech and swallow consult to follow Repeat CT head in 24hr and carotid doppler and echo.
[2017-08-08] MEDS ORDERED: ASPIRIN/DIPYRIDAMOLE 25 MG/200 MG CAPSULE (FP) PO ONE (08:45)
--- NOTE | 2017-08-08 08:49 | PN ---
Progress Note (short form) - Note Progress Note: patient was found on the floor around 715am during the change of shift, doctor was infromed about the patient 8:18 am Physical exam: patient is tachycardic with HR of 105-120 irregularly irregular she is tachpneic AAOX3, patient knew she was at [facility], she knew it was July, and knew that it was 2016. she also named the president of the as Eliane. she stated she is okay and she is anxious because she wants to go to the bathroom S1 and s2 irregular rhythm lungs CTA
[2017-08-08] MEDS ORDERED: ASPIRIN/DIPYRIDAMOLE 25 MG/200 MG CAPSULE (FP) ONE (09:18)
[2017-08-08] MEDS ORDERED: ASPIRIN 81 MG CHEWABLE TABLETS PO SCH (10:00)
[2017-08-08] MEDS ORDERED: APIXABAN 2.5 MG TABLET PO SCH (10:00)
[2017-08-08 12:13] VITALS: BMI 25.4
[2017-08-08] MEDS: RANITIDINE HCL 150 MG TABLET (FP) PO SCH (13:01)
[2017-08-08] MEDS: SERTRALINE HCL 50 MG TABLET (FP) PO SCH (13:01)
[2017-08-08] MEDS: ATENOLOL 50 MG TABLET (FP) PO SCH ×2 (13:02→21:06)
--- NOTE | 2017-08-08 15:11 | EKG ---
Test Reason : Blood Pressure : / mmHG Vent. Rate : 134 BPM Atrial Rate : 150 BPM P-R Int : 000 ms QRS Dur : 138 ms QT Int : 370 ms P-R-T Axes : 000 136 188 degrees QTc Int : 552 ms ATRIAL FIBRILLATION WITH RAPID VENTRICULAR RESPONSE RIGHT AXIS DEVIATION CLBBB ABNORMAL ECG WHEN COMPARED WITH ECG OF 13-APR-2017 23:36, VENT. RATE HAS INCREASED BY 46 BPM REPEAT EKG IF CLINICALLY INDICATED Confirmed by MIKA DOCKERY MD ([id number]) on 08/08/2017 3:10:59 PM Referred By: Confirmed By:MIKA DOCKERY MD
[2017-08-08 15:17] LABS: URINE LEUK ESTERASE Negative (NEGATIVE)
[2017-08-08] MEDS ORDERED: QUEtiapine FUMARATE 25 MG TABLET (FP) PO ONE (20:44)
[2017-08-08] MEDS: ROSUVASTATIN CA 20 MG TABLET (FP) PO SCH (21:06)
[2017-08-08] MEDS: MOMETASONE FUROATE 220 MCG/IH INHALER IH SCH (21:07)
[2017-08-09] MEDS: FUROSEMIDE 40 MG TABLET (FP) PO SCH ×2 (05:39→13:40)
[2017-08-09 08:06] LABS: BASOPHIL 1.5 % (0-2.0); EOSINOPHIL 3.1 % (0-4.5); MCH 30.5 pg (25.7-33.7); MCHC 32.9 g/dl (32.0-36.0); MEAN CELL VOLUME 92.7 fl (80-96); MEAN PLT VOLUME 9.3 fl (7.5-11.1); NEUTROPHILS 77.2 % (42.8-82.8); PLATELET COUNT 137 K/MM3 (134-434); RDW 13.7 % (11.6-15.6); WHITE BLOOD COUNT 7.1 K/mm3 (4.0-10.0)
[2017-08-09] MEDS: SERTRALINE HCL 50 MG TABLET (FP) PO SCH (09:08)
[2017-08-09] MEDS: RANITIDINE HCL 150 MG TABLET (FP) PO SCH (09:08)
[2017-08-09] MEDS: ATENOLOL 50 MG TABLET (FP) PO SCH (09:08)
[2017-08-09 09:23] LABS: ALBUMIN 3.9 g/dl (3.4-5.0); ALK PHOS 101 U/L (45-117); ANION GAP 13 (8-16); BILIRUBIN,TOTAL 1.1 mg/dL (0.2-1.0); CALCIUM 9.7 mg/dL (8.5-10.1); CHOLESTEROL 109 mg/dL (50-200); CO2 23 mmol/L (21-32); CREATININE 1.8 mg/dL (0.55-1.02); GLUCOSE,RANDOM 103 mg/dL (74-106); MAGNESIUM 2.4 mg/dL (1.8-2.4); SGOT/AST 50 U/L (15-37); SGPT/ALT 31 U/L (12-78); TOT PROT 6.9 g/dl (6.4-8.2)
--- NOTE | 2017-08-09 12:07 | PN ---
Progress Note, Physician History of Present Illness: patient is confused - Current Medication List Current Medications: Active Medications Atenolol (Tenormin -) 50 mg PO BID [facility] Last Admin: 08/09/17 09:08 Dose: 50 mg Furosemide (Lasix -) 40 mg PO BID@0600,1400 [facility] Last Admin: 08/09/17 05:39 Dose: 40 mg Mometasone Furoate (Asmanex 220mcg -) 1 puff IH HS [facility] Last Admin: 08/08/17 21:07 Dose: Not Given Ranitidine HCl (Zantac -) 150 mg PO DAILY [facility] Last Admin: 08/09/17 09:08 Dose: 150 mg Rosuvastatin Calcium (Crestor -) 20 mg PO HS [facility] Last Admin: 08/08/17 21:06 Dose: 20 mg Sertraline HCl (Zoloft -) 50 mg PO DAILY [facility] Last Admin: 08/09/17 09:08 Dose: 50 mg - Objective Vital Signs: Vital Signs Temperature 98.5 F 08/09/17 11:00 Pulse Rate 102 H 08/09/17 11:00 Respiratory Rate 20 08/09/17 11:00 Blood Pressure 124/57 08/09/17 11:00 O2 Sat by Pulse Oximetry (%) 97 08/09/17 09:00 Constitutional: Yes: Well Nourished, Anxious Eyes: Yes: WNL, Conjunctiva Clear HENT: Yes: WNL Neck: Yes: WNL Cardiovascular: Yes: WNL, Pulse Irregular, S1, S2 Respiratory: Yes: WNL Gastrointestinal: Yes: WNL Neurological: Yes: Confusion Psychiatric: Yes: Agitated Labs: CBC, BMP 08/09/17 06:15 08/09/17 06:15 INR, PTT INR 1.57 (0.82-1.09) H 08/07/17 23:23 Assessment/Plan # AMS - Neuro Consult - f/u Head CT negative for acute stroke or bleeding # afib - on hold due to fall will reassess and evaluate to restart apixiban after nerulogy evaluation - consult cardiology - increase atenolol to 100mg daily - c/w telemetry monitoring # CHF - last echo 10/2016 -> severe Left ventricular dysfunction - cardiology consult - c/w home medication - monitor electrolytes # COPD - continue O2 prn - continue Asmanex # CKD - baseline Cr ~1.5 - continue to monitor # htn - continue home med # hld - continue home med of rosuvastatin # FEN - Fluids: encourage po - Electrolytes: wnl, continue to monitor - Nutrition: regular diet -> passed bedside swallow eval # Prophylaxis - DVT ppx with Eliquis
[2017-08-09] MEDS ORDERED: ATENOLOL 50 MG TABLET (FP) PO STA (12:20)
[2017-08-09] MEDS ORDERED: POTASSIUM CHLORIDE TABS 20 MEQ TABLET.ER (FP) PO ONE (12:45)
--- NOTE | 2017-08-09 14:04 | CONSULT ---
Consult - text type - Consultation Consultation Note: NEUROLOGY CONSULTATION is greatly appreciated: Events reviewed and discussed with Dr. Porter and RN. I spoke to RN last evening and recommended resumption of Apixaban. Patient examined with both daughters at the bedside who aided in the historical details. This 82 yo RH woman lives with her daughter. PMH sig for HTN, Chol, ASHD, AFib, CHF, COPD maintained on Apixaban, atenolol, flovent, sertraline, lasix, FeSo4, ranitidine, crestor. 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 Admitted here and told TIA/CVA. Walked with a cane after this. In March, was admitted after an episode of speech arrest with eyes rolling back, shaking followed by confusion resolving over 20-30 mins. On Thursday a similar episode occurred but was "more prolonged and more severe." The patient had just been put in bed when she stopped talking, stared, her eyes rolled back and she had witnessed shaking of all 4's without tongue biting or incontinence. During this time she "didn't breathe." When the shaking stopped she vomited but remained confused with gibberish speech. EMS reportedly found "slow heart" and ER found her to have confused speech. Since admission the daughter's describe visual hallucination such as bugs crawling. CT of head x2 (both reviewed): Reveal moderate, diffuse, atrophy with diffuse microvascular changes and old left posterior temporal CVA. OFELIA: No bruits. Cor: Rapid and irregular. Small left ear pinna ecchymosis. No other evidence of external head trauma. Right elbow ecchymosis. NEURO: Asleep but easily arousable to name. Ox "my daughter's patio" but does know it is Jul. No frontal release findings CN II-XII: Normal Motor: No drift. Normal grasps and ankle dorsiflexion. Normal reflexes. Toes downgoing. Coord: No FTN Dystaxia Sensory: Normal Gait: deferred IMP: 1. Mild B/L cerebral dysfunction (Underlying OMS). 2. 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 3. New onset seizure disorder (March) now admitted with probable recurrent seizure. Prominent involvement with confused speech supports partial seizure onset with possible left posterior temporal seizure focus. 4. Now, encephalopathic with visual hallucinations (etiology uncertain but may still be post-ictal. SUGGEST: Begin Levetiracetam 250 mg PO q 12 hrs x 1 week, then 500 mg PO q 12 hrs. Resume Apixaban Observe for resolution of hallucinations. Otherwise would consider low-dose quetiapine (12.5 qHS). Check B12, TSH, RPR, r/o occult infection. Neuro f/u and EEG as out patient. Thank you very much, Pepe Kuar.
[2017-08-09] MEDS ORDERED: levETIRAcetam 500 MG/5 ML INJECTION VIAL IVPB ONE (14:30)
--- NOTE | 2017-08-09 14:49 | EKG ---
Test Reason : Blood Pressure : / mmHG Vent. Rate : 085 BPM Atrial Rate : 076 BPM P-R Int : 000 ms QRS Dur : 154 ms QT Int : 422 ms P-R-T Axes : 000 -47 037 degrees QTc Int : 502 ms ATRIAL FIBRILLATION INDETERMINATE AXIS CLBBB ABNORMAL ECG WHEN COMPARED WITH ECG OF 07-AUG-2017 23:43, VENT. RATE HAS DECREASED BY 49 BPM DECREASE IN HEART RATE Confirmed by MIKA DOCKERY MD ([id number]) on 08/09/2017 2:48:50 PM Referred By: Confirmed By:MIKA DOCKERY MD
[2017-08-09] MEDS ORDERED: METOPROLOL TARTRATE 5 MG/5 ML VIAL IVPUSH PRN (14:56)
[2017-08-09] MEDS: APIXABAN 2.5 MG TABLET PO SCH ×2 (16:14→21:18)
--- NOTE | 2017-08-09 17:08 | HOSP ---
Physical Examination Vital Signs: Vital Signs Temperature 98.5 F 08/09/17 11:00 Pulse Rate 133 H 08/09/17 16:10 Respiratory Rate 20 08/09/17 11:00 Blood Pressure 131/54 08/09/17 16:10 O2 Sat by Pulse Oximetry (%) 97 08/09/17 09:00 Labs: CBC, BMP 08/09/17 06:15 08/09/17 06:15 Hospitalist Encounter Assessment: Fever 102.4 reported Will hughes cx, obtain cxr Trend fever
[2017-08-09] MEDS: levETIRAcetam 250 MG TABLET (FP) PO SCH (21:18)
[2017-08-09] MEDS: ROSUVASTATIN CA 20 MG TABLET (FP) PO SCH (21:18)
[2017-08-09] MEDS: MOMETASONE FUROATE 220 MCG/IH INHALER IH SCH (21:18)
[2017-08-10] MEDS: FUROSEMIDE 40 MG TABLET (FP) PO SCH (05:32)
[2017-08-10] MEDS ORDERED: PT OWN MED DRAWER 7, Y5N ONE ×2 (05:53→20:28)
[2017-08-10 07:41] LABS: BASOPHIL 0.3 % (0-2.0); EOSINOPHIL 0.4 % (0-4.5); MCH 31.1 pg (25.7-33.7); MCHC 33.7 g/dl (32.0-36.0); MEAN CELL VOLUME 92.2 fl (80-96); MEAN PLT VOLUME 9.5 fl (7.5-11.1); NEUTROPHILS 84.1 % (42.8-82.8); PLATELET COUNT 129 K/MM3 (134-434); RDW 13.8 % (11.6-15.6); WHITE BLOOD COUNT 10.9 K/mm3 (4.0-10.0)
[2017-08-10 08:22] LABS: ALBUMIN 3.5 g/dl (3.4-5.0); ALK PHOS 90 U/L (45-117); ANION GAP 11 (8-16); BILIRUBIN,TOTAL 1.3 mg/dL (0.2-1.0); CALCIUM 8.9 mg/dL (8.5-10.1); CO2 24 mmol/L (21-32); GLUCOSE,RANDOM 107 mg/dL (74-106); MAGNESIUM 2.4 mg/dL (1.8-2.4); SGOT/AST 54 U/L (15-37); SGPT/ALT 27 U/L (12-78); TOT PROT 6.5 g/dl (6.4-8.2)
[2017-08-10] MEDS ORDERED: ATENOLOL 50 MG TABLET (FP) PO SCH (10:00)
--- NOTE | 2017-08-10 10:09 | CON.CARD ---
Consult Consult Specialty:: cardio Referred by:: barby Reason for Consultation:: cva - History of Present Illness Chief Complaint: seizure History of Present Illness: 82 yo female admitted with blank stare and sz movement noted. had prior sz history. seeing by neuro (dr alvarez), with the following impression: 1. Mild B/L cerebral dysfunction (Underlying OMS). 2. 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 3. New onset seizure disorder (March) now admitted with probable recurrent seizure. Prominent involvement with confused speech supports partial seizure onset with possible left posterior temporal seizure focus. 4. Now, encephalopathic with visual hallucinations (etiology uncertain but may still be post-ictal. dtr describes chronic sob with home O2 use. was on O2 20/04 (denies copd/asthma) but weaned off due to improved sx's of late. sob waxes and wanes, feels mother has been at her baseline. today when walked with PT she noted she became noticeably breathless, not severe --now resolved since back in bed. no leg swelling no cp, palpitations PMH: afib (on Eliquis), COPD (on 3L O2 at home), CHF, CKD, htn - Past Medical History [employer]STM[employer]INGER: Yes: CVA, TIA (hx of transient left facial weakness; ? TIA ?CVA ?? Loo's) Cardio/Vascular: Yes: AFIB (s/p DC cardioversion, now back in AFIB), CHF, HTN, Hyperlipdemia, Mitral Insufficiency, Pulmonary Hypertension Gastrointestinal: Yes: Gastritis Renal/: Yes: Renal Failure, Renal Inusuff (baseline creatinine around 2-2.5) - Past Surgical History Past Surgical History: Yes: Colonoscopy (and EGD 04/14) - Alcohol/Substance Use Hx Alcohol Use: No History of Substance Use: reports: None - Smoking History Smoking history: Unknown if ever smoked Have you smoked in the past 12 months: No Aproximately how many cigarettes per day: 3 If you are a former smoker, when did you quit?: 30 - Social History ADL: Independent 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) History of Recent Travel: No Home Medications - Allergies Allergies/Adverse Reactions: Allergies Allergy/AdvReac Type Severity Reaction Status Date / Time No Known Allergies Allergy Verified 08/07/17 22:34 - Home Medications Home Medications: Ambulatory Orders Apixaban [Eliquis] 2.5 mg PO BID 07/22/14 Atenolol [Tenormin -] 50 mg PO BID #60 tablet 09/29/14 Betamethasone Dipr 0.05% Oint [Diprolene] 50 gm TP ASDIR PRN 02/05/15 Fluticasone Propionate [Flovent Diskus] 50 mcg IH BID 02/05/15 Sertraline HCl [Zoloft -] 50 mg PO DAILY 02/05/15 Furosemide [Lasix -] 40 mg PO BID@0600,1400 #60 tablet 02/15/15 Potassium Chloride [K-Dur -] 40 meq PO DAILY #60 tablet.er 02/15/15 Hydrocortisone 2.5% Topical Cr [Anusol-Hc -] 1 applic TP BID #1 tube 04/27/15 Ferrous Sulfate [Feosol] 325 mg PO BID 12/30/15 Ranitidine HCl [Zantac] 150 mg PO ASDIR 12/30/15 Aspirin [ASA -] 81 mg PO DAILY tab.chew 04/16/17 Rosuvastatin [Crestor -] 20 mg PO HS #30 tablet 04/16/17 Family Disease History - Family Disease History Family Disease History: Heart Disease: Mother, CA: Father (colon), Brother ( colon), Sister (colon) Review of Systems - Review of Systems Constitutional: denies: Chills, Fever Eyes: denies: Eye Pain HENT: denies: Nasal Congestion Neck: denies: Stiffness Cardiovascular: denies: Palpitations Respiratory: denies: Orthopnea, PND Gastrointestinal: denies: Diarrhea, Rectal Bleeding Genitourinary: denies: Burning, Hematuria Musculoskeletal: denies: Muscle Pain Integumentary: denies: Rash Neurological: denies: Numbness, Syncope Endocrine: denies: Excessive Sweating Hematology/Lymphatic: denies: Excessive Bleeding Vital Signs: Vital Signs Temperature 98.0 F 08/10/17 05:43 Pulse Rate 70 08/10/17 05:43 Respiratory Rate 19 08/10/17 05:43 Blood Pressure 102/50 08/10/17 05:43 O2 Sat by Pulse Oximetry (%) 95 08/09/17 21:00 Constitutional: Yes: Well Nourished, No Distress Eyes: No: Sclera Icterus HENT: No: Nasal Congestion Neck: No: Decreased ROM Respiratory: Yes: CTA Bilaterally. No: Accessory Muscle Use, Rales, Wheezes Gastrointestinal: Yes: Normal Bowel Sounds. No: Distention, Hepatomegaly, Palpable Mass, Tenderness Cardiovascular: Yes: Regular Rate and Rhythm JVD: Yes Carotid Bruit: No PMI: Non-Displaced Heart Sounds: Yes: S1, S2. No: Gallop Murmur: No: Systolic Murmur, Diastolic Murmur Musculoskeletal: Yes: Other (No kyphosis) Extremities: No: Cold, Cyanosis Edema: No Peripheral Pulses: 2+ Left Carotid, 2+ Right Carotid, 2+ Left Doralis Pedis, 2+ Right Dorsalis Pedis Integumentary: No: Jaundice Neurological: Yes: Alert. No: Seizure Psychiatric: No: Agitated - Other Data Labs, Other Data: CBC, BMP 08/10/17 05:27 08/10/17 05:27 INR, PTT INR 1.57 (0.82-1.09) H 08/07/17 23:23 Laboratory Tests 08/09/17 08/10/17 08/10/17 06:15 05:27 05:27 WBC 10.9 H D Hgb 11.2 Plt Count 129 L Sodium 142 Potassium 3.8 Carbon Dioxide 24 BUN 42 H Creatinine 2.0 H AST 54 H ALT 27 Cholesterol 109 Total LDL Cholesterol 63 HDL Cholesterol 33 L tele: rapid AF yesterday--good today Assessment/Plan EKG #1: afib, LBBB, q waves I/avL; nonsp ST-Ts related to LBBB--no signif change vs prior #2: no signif change echo 10/2016: afib, nl lv size, low nl lvef, septal wma c/w lbbb, nl rv, mild sheldon, mod mr, mild ar, minimal , mild tr, mod pr, mild phtn echo [facility] 03/2017: sev dec lvef, global hk, mod dil rv, mod reduced rv fcn, mod sheldon, sev mr, mod ar, small eff-->on dr musa review there is septal wma c/w lbbb and overall lvef is moderately reduced. MR appears more moderate. mibi 03/2013: nl mpi cxr: no pulm edema or effusions chronic systolic chf: -echo here 04/13 reviewed, shows moderately reduced lvef on review of images by our team -treated with lasix, bb then -ESTRADA deferred due to ckd and low bp, ditto for hydralazine/imdur -currently has been receiving home lasix 40 bid since 08/08--bun and creat trending up. -mild JVD suspected on exam, and she remains with sob on exertion -121 lbs here, no baseline -? pt dry, vs cardiorenal syndrome -will give one test dose lasix today 40 iv qd--assess wt and labs in am seizure: -per neuro h/o prior CVA: -on AC AFib: -on eliquis at home, continued here by neuro -HR rapid in ER initially, when was post-ictal -currently HR control is optimal -on atenolol 100mg at home--bp running low here. changed to 25 bid. monitor tele for HR control SEAN on CKD: -baseline creatinines 1.4-1.6 -here was 1.7 on admit, trending up (2.0) -? decr PO intake/vol depletion--per pmd d/c tele
[2017-08-10] MEDS: ATENOLOL 25 MG TABLET (FP) PO SCH ×2 (10:46→21:28)
[2017-08-10] MEDS: APIXABAN 2.5 MG TABLET PO SCH ×2 (10:50→21:27)
[2017-08-10] MEDS: SERTRALINE HCL 50 MG TABLET (FP) PO SCH (10:50)
[2017-08-10] MEDS: levETIRAcetam 250 MG TABLET (FP) PO SCH ×2 (10:50→21:27)
[2017-08-10] MEDS: RANITIDINE HCL 150 MG TABLET (FP) PO SCH (10:50)
--- NOTE | 2017-08-10 11:58 | PN ---
Progress Note, Physician Chief Complaint: Ms Correa is without complaint. Denies cp, sob, n/v. Appears confused - Current Medication List Current Medications: Active Medications Apixaban (Eliquis -) 2.5 mg PO BID COUNT [facility]CLUDES [facility] Last Admin: 08/10/17 10:50 Dose: 2.5 mg Atenolol (Tenormin -) 25 mg PO BID COUNT [facility]CLUDES [facility] Last Admin: 08/10/17 10:46 Dose: Not Given Furosemide (Lasix -) 40 mg PO BID@0600,1400 COUNT INCLUDES [facility] Last Admin: 08/10/17 05:32 Dose: 40 mg Levetiracetam (Keppra -) 250 mg PO BID COUNT [facility]CLUDES [facility] Last Admin: 08/10/17 10:50 Dose: 250 mg Metoprolol Tartrate (Lopressor Injection -) 2.5 mg IVPUSH Q6H PRN PRN Reason: HYPERTENSION Last Admin: 08/09/17 15:45 Dose: 2.5 mg Mometasone Furoate (Asmanex 220mcg -) 1 puff IH HS COUNT [facility]CLUD[facility] Last Admin: 08/09/17 21:18 Dose: 1 puff Ranitidine HCl (Zantac -) 150 mg PO DAILY COUNT [facility]CLUD[facility] Last Admin: 08/10/17 10:50 Dose: 150 mg Rosuvastatin Calcium (Crestor -) 20 mg PO HS COUNT [facility]CLUDES [facility] Last Admin: 08/09/17 21:18 Dose: 20 mg Sertraline HCl (Zoloft -) 50 mg PO DAILY COUNT [facility]CLUD[facility] Last Admin: 08/10/17 10:50 Dose: 50 mg - Objective Vital Signs: Vital Signs Temperature 36.7 C 08/10/17 05:43 Pulse Rate 70 08/10/17 05:43 Respiratory Rate 19 08/10/17 05:43 Blood Pressure 102/50 08/10/17 05:43 O2 Sat by Pulse Oximetry (%) 95 08/09/17 21:00 Constitutional: Yes: Well Nourished, No Distress, Calm Cardiovascular: Yes: Pulse Irregular. No: Tachycardia, Gallop, Murmur, Rub Labs: CBC, BMP 08/10/17 05:27 08/10/17 05:27 INR, PTT INR 1.57 (0.82-1.09) H 08/07/17 23:23 Problem List - Problems (1) Seizure Assessment/Plan: -patient presents with seizures -appreciate neurology assistance -continue keppra Code(s): R56.9 - UNSPECIFIED CONVULSIONS (2) Metabolic encephalopathy Assessment/Plan: -secondary to seizure/post ictal state -patient appears confused but answers some questions appropriately -suspect has underlying progressive dementia, will need further evaluation and work up as an outpatient Code(s): G93.41 - METABOLIC ENCEPHALOPATHY (3) Afib Assessment/Plan: -appreciate cardiology assistance -rate controlled -atenolol decreased -continue eliquis Code(s): I48.91 - UNSPECIFIED ATRIAL FIBRILLATION Qualifiers: Atrial fibrillation type: chronic Qualified Code(s): I48.2 - Chronic atrial fibrillation (4) CHF (congestive heart failure) Assessment/Plan: -continue lasix -not in exacerbation Code(s): I50.9 - HEART FAILURE, UNSPECIFIED Qualifiers: Congestive heart failure type: diastolic Congestive heart failure chronicity: chronic Qualified Code(s): I50.32 - Chronic diastolic (congestive ) heart failure (5) Chronic renal failure Assessment/Plan: -worsening -check renal ultrasound -FENa labs -possibly secondary to low blood pressure Code(s): N18.9 - CHRONIC KIDNEY DISEASE, UNSPECIFIED Qualifiers: Chronic kidney disease stage: unspecified stage Qualified Code(s): N18.9 - Chronic kidney disease, unspecified (6) HTN (hypertension) Assessment/Plan: -well controlled -continue current regimen Code(s): I10 - ESSENTIAL (PRIMARY) HYPERTENSION (7) Hyperlipidemia Assessment/Plan: -continue crestor Code(s): E78.5 - HYPERLIPIDEMIA, UNSPECIFIED
[2017-08-10] MEDS ORDERED: FUROSEMIDE 40 MG/4 ML INJECTABLE VIAL IVPUSH ONE (12:39)
[2017-08-10] MEDS: ROSUVASTATIN CA 20 MG TABLET (FP) PO SCH (21:28)
--- NOTE | 2017-08-10 22:32 | FALL ---
Fall Exam - Event Witnessed fall: No Location of Fall: Patient Room Fall from: Bed - Pre-Fall Fall Risk: High Risk Mental Status: Alert Current Medications: Current Medications Generic Name Dose Route Start Last Admin Trade Name Freq PRN Reason Stop Dose Admin Apixaban 2.5 mg 08/09/17 15:00 08/10/17 21:27 Eliquis - PO 2.5 mg BID NABEEL Administration Atenolol 25 mg 08/10/17 10:30 08/10/17 21:28 Tenormin - PO 25 mg BID NABEEL Administration Levetiracetam 250 mg 08/09/17 22:00 08/10/17 21:27 Keppra - PO 250 mg BID NABEEL Administration Metoprolol Tartrate 2.5 mg 08/09/17 14:56 08/09/17 15:45 Lopressor Injection - IVPUSH 2.5 mg Q6H PRN Administration HYPERTENSION Mometasone Furoate 1 puff 08/08/17 22:00 08/09/17 21:18 Asmanex 220mcg - IH 1 puff HS NABEEL Administration Ranitidine HCl 150 mg 08/08/17 10:00 08/10/17 10:50 Zantac - PO 150 mg DAILY NABEEL Administration Rosuvastatin Calcium 20 mg 08/08/17 22:00 08/10/17 21:28 Crestor - PO 20 mg HS NABEEL Administration Sertraline HCl 50 mg 08/08/17 10:00 08/10/17 10:50 Zoloft - PO 50 mg DAILY NABEEL Administration - Post-Fall Exam Findings: Patient is AAOx3, HEENT- Atraumatic Normocephalic, PEERL, +EOMs, nares intact, oropharynx/Throat no exudate, patent. Neck- FROM, supple, no lymphadenopathy. Lungs- CTAP, Heart- RRR, S1S2 no MRG. Musculoskeletal- non- tender to spinal processes, no obvious deformity. Abdomen: soft, BS present, non tender to palpation. Hips/Pelvis: non tender, no crepitus, FROM. Extremities : FROM, non tender, no deformity. Distal pulses present. No skin tear, abrasion or laceration is appreciated Treatment: None Vital Signs: Vital Signs Temperature 98.1 F 08/10/17 18:00 Pulse Rate 87 08/10/17 18:00 Respiratory Rate 20 08/10/17 18:00 Blood Pressure 99/65 08/10/17 18:00 O2 Sat by Pulse Oximetry (%) 95 08/10/17 18:00 LOC Post-Fall: Unchanged Identify factors for HIGH RISK for Head Injury: Pt on anticoagulant
[2017-08-10] MEDS: MOMETASONE FUROATE 220 MCG/IH INHALER IH SCH (23:00)
[2017-08-11] MEDS ORDERED: PT OWN MED DRAWER 7, Y5N ONE ×3 (01:14→21:47)
[2017-08-11 07:59] LABS: BASOPHIL 0.5 % (0-2.0); EOSINOPHIL 2.3 % (0-4.5); MCH 30.7 pg (25.7-33.7); MCHC 33.2 g/dl (32.0-36.0); MEAN CELL VOLUME 92.3 fl (80-96); MEAN PLT VOLUME 9.5 fl (7.5-11.1); NEUTROPHILS 82.3 % (42.8-82.8); PLATELET COUNT 131 K/MM3 (134-434); RDW 13.7 % (11.6-15.6); WHITE BLOOD COUNT 8.1 K/mm3 (4.0-10.0)
[2017-08-11 08:31] LABS: ANION GAP 14 (8-16); CALCIUM 8.4 mg/dL (8.5-10.1); CO2 22 mmol/L (21-32); CREATININE 1.7 mg/dL (0.55-1.02); GLUCOSE,RANDOM 85 mg/dL (74-106); MAGNESIUM 2.3 mg/dL (1.8-2.4); PHOSPHOROUS 2.7 mg/dL (2.5-4.9)
[2017-08-11] MEDS: SERTRALINE HCL 50 MG TABLET (FP) PO SCH (09:50)
[2017-08-11] MEDS: ATENOLOL 25 MG TABLET (FP) PO SCH ×2 (09:50→21:58)
[2017-08-11] MEDS: RANITIDINE HCL 150 MG TABLET (FP) PO SCH (09:50)
[2017-08-11] MEDS: levETIRAcetam 250 MG TABLET (FP) PO SCH ×2 (09:51→21:57)
[2017-08-11] MEDS: APIXABAN 2.5 MG TABLET PO SCH ×2 (09:51→21:57)
[2017-08-11] MEDS ORDERED: POTASSIUM CHLORIDE TABS 20 MEQ TABLET.ER (FP) PO ONE (14:04)
[2017-08-11] MEDS ORDERED: MAGNESIUM OXIDE 400 MG TABLET (FP) PO SCH (14:15)
--- NOTE | 2017-08-11 15:42 | PN ---
Progress Note, Physician Chief Complaint: sz History of Present Illness: dtr notes she is much less breathless today with activity; no syncope, palpitations, cp, leg swelling - Current Medication List Current Medications: Active Medications Apixaban (Eliquis -) 2.5 mg PO BID [facility] Last Admin: 08/11/17 09:51 Dose: 2.5 mg Atenolol (Tenormin -) 25 mg PO BID [facility] Last Admin: 08/11/17 09:50 Dose: 25 mg Levetiracetam (Keppra -) 250 mg PO BID [facility] Last Admin: 08/11/17 09:51 Dose: 250 mg Magnesium Oxide (Mag-Ox -) 400 mg PO BID [facility] Last Admin: 08/11/17 15:36 Dose: 400 mg Metoprolol Tartrate (Lopressor Injection -) 2.5 mg IVPUSH Q6H PRN PRN Reason: HYPERTENSION Last Admin: 08/09/17 15:45 Dose: 2.5 mg Mometasone Furoate (Asmanex 220mcg -) 1 puff IH [facility] Last Admin: 08/10/17 23:00 Dose: 1 puff Ranitidine HCl (Zantac -) 150 mg PO DAILY [facility] Last Admin: 08/11/17 09:50 Dose: 150 mg Rosuvastatin Calcium (Crestor -) 20 mg PO HS [facility] Last Admin: 08/10/17 21:28 Dose: 20 mg Sertraline HCl (Zoloft -) 50 mg PO DAILY [facility] Last Admin: 08/11/17 09:50 Dose: 50 mg - Objective Vital Signs: Vital Signs Temperature 97.9 F 08/11/17 13:48 Pulse Rate 90 08/11/17 13:48 Respiratory Rate 20 08/11/17 13:48 Blood Pressure 98/64 08/11/17 13:48 O2 Sat by Pulse Oximetry (%) 96 08/11/17 09:00 Constitutional: Yes: Well Nourished, No Distress, Calm Cardiovascular: Yes: Pulse Irregular, JVD, S1, S2. No: Gallop, Murmur Respiratory: Yes: Regular, CTA Bilaterally. No: Accessory Muscle Use, Rales, Wheezes Extremities: No: Cold Edema: No Neurological: Yes: Alert. No: Seizure Psychiatric: No: Agitated Labs: CBC, BMP 08/11/17 06:00 08/11/17 06:00 INR, PTT INR 1.57 (0.82-1.09) H 08/07/17 23:23 Assessment/Plan EKG #1: afib, LBBB, q waves I/avL; nonsp ST-Ts related to LBBB--no signif change vs prior #2: no signif change echo 10/2016: afib, nl lv size, low nl lvef, septal wma c/w lbbb, nl rv, mild sheldon, mod mr, mild ar, minimal , mild tr, mod pr, mild phtn echo [facility] 03/2017: sev dec lvef, global hk, mod dil rv, mod reduced rv fcn, mod sheldon, sev mr, mod ar, small eff-->on dr musa review there is septal wma c/w lbbb and overall lvef is moderately reduced. MR appears more moderate. mibi 03/2013: nl mpi cxr: no pulm edema or effusions chronic systolic chf: -echo here 04/13 reviewed, shows moderately reduced lvef on review of images by our team -treated with lasix, bb then -ESTRADA deferred due to ckd and low bp, ditto for hydralazine/imdur -currently has been receiving home lasix 40 bid since 08/08--bun and creat trending up. -mild JVD suspected on exam, and she remains with sob on exertion -08/10: 121 lbs here, no baseline. ? pt dry, vs cardiorenal syndrome -gave one test dose lasix today 40 iv qd. -08/11: bun/creat both down from yesterday, wt 120--suspect cardiorenal syndrome improving with diuresis. -will rpt lasix 40 iv dose tomorrow am (dtr wants to wait until am b/c it's late and mother slipped getting oob on her own last night, will need freq assist to get to bathroom after lasix) -rpt echo in office once better diuresed seizure: -per neuro h/o prior CVA: -on AC AFib: -on eliquis at home, continued here by neuro -HR rapid in ER initially, when was post-ictal -on atenolol 100mg at home--bp running low here (90s at times). changed to 25 bid. -HR remains controlled--cont same meds SEAN on CKD: -baseline creatinines 1.4-1.6 -here was 1.7 on admit, trending up (2.0) -? cardiorenal--observe labs trend with ongoing diuresis
--- NOTE | 2017-08-11 17:02 | PN ---
Progress Note, Physician Chief Complaint: Ms Correa is without complaint. Denies cp, sob, n/v. - Current Medication List Current Medications: Active Medications Apixaban (Eliquis -) 2.5 mg PO BID [facility] Last Admin: 08/11/17 09:51 Dose: 2.5 mg Atenolol (Tenormin -) 25 mg PO BID [facility] Last Admin: 08/11/17 09:50 Dose: 25 mg Levetiracetam (Keppra -) 250 mg PO BID [facility] Last Admin: 08/11/17 09:51 Dose: 250 mg Metoprolol Tartrate (Lopressor Injection -) 2.5 mg IVPUSH Q6H PRN PRN Reason: HYPERTENSION Last Admin: 08/09/17 15:45 Dose: 2.5 mg Mometasone Furoate (Asmanex 220mcg -) 1 puff IH [facility] Last Admin: 08/10/17 23:00 Dose: 1 puff Ranitidine HCl (Zantac -) 150 mg PO DAILY [facility] Last Admin: 08/11/17 09:50 Dose: 150 mg Rosuvastatin Calcium (Crestor -) 20 mg PO HS [facility] Last Admin: 08/10/17 21:28 Dose: 20 mg Sertraline HCl (Zoloft -) 50 mg PO DAILY [facility] Last Admin: 08/11/17 09:50 Dose: 50 mg - Objective Vital Signs: Vital Signs Temperature 36.6 C 08/11/17 13:48 Pulse Rate 90 08/11/17 13:48 Respiratory Rate 20 08/11/17 13:48 Blood Pressure 98/64 08/11/17 13:48 O2 Sat by Pulse Oximetry (%) 96 08/11/17 09:00 Constitutional: Yes: Well Nourished, No Distress, Calm Cardiovascular: Yes: Pulse Irregular. No: Tachycardia, Gallop, Murmur, Rub Respiratory: Yes: Regular, CTA Bilaterally. No: Rales, Rhonchi, Wheezes Gastrointestinal: Yes: Normal Bowel Sounds, Soft. No: Distention, Tenderness Extremities: Yes: WNL Edema: No Labs: CBC, BMP 08/11/17 06:00 08/11/17 06:00 INR, PTT INR 1.57 (0.82-1.09) H 08/07/17 23:23 Problem List - Problems (1) Seizure Code(s): R56.9 - UNSPECIFIED CONVULSIONS (2) Metabolic encephalopathy Code(s): G93.41 - METABOLIC ENCEPHALOPATHY (3) Afib Code(s): I48.91 - UNSPECIFIED ATRIAL FIBRILLATION Qualifiers: Atrial fibrillation type: chronic Qualified Code(s): I48.2 - Chronic atrial fibrillation (4) CHF (congestive heart failure) Code(s): I50.9 - HEART FAILURE, UNSPECIFIED Qualifiers: Congestive heart failure type: diastolic Congestive heart failure chronicity: chronic Qualified Code(s): I50.32 - Chronic diastolic (congestive ) heart failure (5) Chronic renal failure Code(s): N18.9 - CHRONIC KIDNEY DISEASE, UNSPECIFIED Qualifiers: Chronic kidney disease stage: unspecified stage Qualified Code(s): N18.9 - Chronic kidney disease, unspecified (6) HTN (hypertension) Code(s): I10 - ESSENTIAL (PRIMARY) HYPERTENSION (7) Hyperlipidemia Code(s): E78.5 - HYPERLIPIDEMIA, UNSPECIFIED Assessment/Plan (1) Seizure Assessment/Plan: -patient presents with seizures -appreciate neurology assistance -continue keppra Code(s): R56.9 - UNSPECIFIED CONVULSIONS (2) Metabolic encephalopathy Assessment/Plan -resolved -patient with underlying dementia Code(s): G93.41 - METABOLIC ENCEPHALOPATHY (3) Afib Assessment/Plan: -appreciate cardiology assistance -rate controlled -continue atenolol -continue eliquis Code(s): I48.91 - UNSPECIFIED ATRIAL FIBRILLATION Qualifiers: Atrial fibrillation type: chronic Qualified Code(s): I48.2 - Chronic atrial fibrillation (4) CHF (congestive heart failure) Assessment/Plan: -lasix held -will give small amount of fluids Code(s): I50.9 - HEART FAILURE, UNSPECIFIED Qualifiers: Congestive heart failure type: diastolic Congestive heart failure chronicity: chronic Qualified Code(s): I50.32 - Chronic diastolic (congestive ) heart failure (5) Chronic renal failure Assessment/Plan: -improved -renal ultrasound reviewed -give small amount of fluid Code(s): N18.9 - CHRONIC KIDNEY DISEASE, UNSPECIFIED Qualifiers: Chronic kidney disease stage: unspecified stage Qualified Code(s): N18.9 - Chronic kidney disease, unspecified (6) HTN (hypertension) Assessment/Plan: -well controlled -continue current regimen Code(s): I10 - ESSENTIAL (PRIMARY) HYPERTENSION (7) Hyperlipidemia Assessment/Plan: -continue crestor Code(s): E78.5 - HYPERLIPIDEMIA, UNSPECIFIED
[2017-08-11] MEDS ORDERED: SODIUM CHLORIDE 1,000 ML IV SCH (17:15)
[2017-08-11] MEDS: ROSUVASTATIN CA 20 MG TABLET (FP) PO SCH (21:57)
[2017-08-11] MEDS: MOMETASONE FUROATE 220 MCG/IH INHALER IH SCH (21:58)
[2017-08-12 08:05] LABS: BASOPHIL 0.5 % (0-2.0); EOSINOPHIL 2.2 % (0-4.5); MCH 30.8 pg (25.7-33.7); MCHC 33.2 g/dl (32.0-36.0); MEAN CELL VOLUME 92.6 fl (80-96); MEAN PLT VOLUME 9.5 fl (7.5-11.1); NEUTROPHILS 81.1 % (42.8-82.8); PLATELET COUNT 146 K/MM3 (134-434); RDW 13.9 % (11.6-15.6); WHITE BLOOD COUNT 5.8 K/mm3 (4.0-10.0)
[2017-08-12 08:09] LABS: ANION GAP 9 (8-16); CO2 24 mmol/L (21-32); GLUCOSE,RANDOM 93 mg/dL (74-106)
[2017-08-12 08:10] LABS: CALCIUM 8.7 mg/dL (8.5-10.1); CREATININE 1.6 mg/dL (0.55-1.02); MAGNESIUM 2.5 mg/dL (1.8-2.4); PHOSPHOROUS 2.1 mg/dL (2.5-4.9)
[2017-08-12] MEDS ORDERED: PT OWN MED DRAWER 7, Y5N ONE ×2 (09:40→18:10)
[2017-08-12] MEDS: ATENOLOL 25 MG TABLET (FP) PO SCH ×2 (09:48→21:25)
[2017-08-12] MEDS: SERTRALINE HCL 50 MG TABLET (FP) PO SCH (09:48)
[2017-08-12] MEDS: RANITIDINE HCL 150 MG TABLET (FP) PO SCH (09:48)
[2017-08-12] MEDS: APIXABAN 2.5 MG TABLET PO SCH ×2 (09:49→22:40)
[2017-08-12] MEDS: levETIRAcetam 250 MG TABLET (FP) PO SCH ×2 (09:49→22:41)
[2017-08-12] MEDS ORDERED: FUROSEMIDE 40 MG/4 ML INJECTABLE VIAL IVPUSH ONE (10:00)
--- NOTE | 2017-08-12 12:28 | PN ---
Progress Note, Physician Chief Complaint: Ms Correa says she does not know how she feels since she just woke up. Daughter at bedside stating Ms Correa is a bit more confused today. Stated she did not sleep well last night. - Current Medication List Current Medications: Active Medications Apixaban (Eliquis -) 2.5 mg PO BID [facility] Last Admin: 08/12/17 09:49 Dose: 2.5 mg Atenolol (Tenormin -) 25 mg PO BID [facility] Last Admin: 08/12/17 09:48 Dose: Not Given Docusate Sodium (Colace -) 100 mg PO BID [facility] Sodium Chloride (Normal Saline -) 1,000 mls @ 42 mls/hr IV ASDIR [facility] Stop: 08/12/17 17:04 Last Admin: 08/11/17 17:27 Dose: 42 mls/hr Levetiracetam (Keppra -) 250 mg PO BID [facility] Last Admin: 08/12/17 09:49 Dose: 250 mg Metoprolol Tartrate (Lopressor Injection -) 2.5 mg IVPUSH Q6H PRN PRN Reason: HYPERTENSION Last Admin: 08/09/17 15:45 Dose: 2.5 mg Mometasone Furoate (Asmanex 220mcg -) 1 puff [facility] Last Admin: 08/11/17 21:58 Dose: 1 puff Polyethylene Glycol (Miralax (For Daily Use) -) 17 gm PO BID [facility] Ranitidine HCl (Zantac -) 150 mg PO DAILY [facility] Last Admin: 08/12/17 09:48 Dose: 150 mg Rosuvastatin Calcium (Crestor -) 20 mg PO HS [facility] Last Admin: 08/11/17 21:57 Dose: 20 mg Sertraline HCl (Zoloft -) 50 mg PO DAILY [facility] Last Admin: 08/12/17 09:48 Dose: 50 mg - Objective Vital Signs: Vital Signs Temperature 36.7 C 08/12/17 09:04 Pulse Rate 83 08/12/17 09:04 Respiratory Rate 20 08/12/17 09:04 Blood Pressure 114/63 08/12/17 09:04 O2 Sat by Pulse Oximetry (%) 95 08/12/17 09:00 Constitutional: Yes: Well Nourished, No Distress, Calm Cardiovascular: Yes: Pulse Irregular. No: Tachycardia, Gallop, Murmur, Rub Respiratory: Yes: Regular, CTA Bilaterally. No: Rales, Rhonchi, Wheezes Gastrointestinal: Yes: Normal Bowel Sounds, Soft. No: Distention, Tenderness Extremities: Yes: WNL Edema: No Labs: CBC, BMP 08/12/17 06:00 08/12/17 06:00 INR, PTT INR 1.57 (0.82-1.09) H 08/07/17 23:23 Problem List - Problems (1) Seizure Code(s): R56.9 - UNSPECIFIED CONVULSIONS (2) Metabolic encephalopathy Code(s): G93.41 - METABOLIC ENCEPHALOPATHY (3) Afib Code(s): I48.91 - UNSPECIFIED ATRIAL FIBRILLATION Qualifiers: Atrial fibrillation type: chronic Qualified Code(s): I48.2 - Chronic atrial fibrillation (4) CHF (congestive heart failure) Code(s): I50.9 - HEART FAILURE, UNSPECIFIED Qualifiers: Congestive heart failure type: diastolic Congestive heart failure chronicity: chronic Qualified Code(s): I50.32 - Chronic diastolic (congestive ) heart failure (5) Chronic renal failure Code(s): N18.9 - CHRONIC KIDNEY DISEASE, UNSPECIFIED Qualifiers: Chronic kidney disease stage: unspecified stage Qualified Code(s): N18.9 - Chronic kidney disease, unspecified (6) HTN (hypertension) Code(s): I10 - ESSENTIAL (PRIMARY) HYPERTENSION (7) Hyperlipidemia Code(s): E78.5 - HYPERLIPIDEMIA, UNSPECIFIED Assessment/Plan (1) Seizure Assessment/Plan: -patient presents with seizures -appreciate neurology assistance -continue keppra Code(s): R56.9 - UNSPECIFIED CONVULSIONS (2) Metabolic encephalopathy Assessment/Plan -resolved -patient with underlying dementia -having sundowning today, instructed daughter to keep patient awake today Code(s): G93.41 - METABOLIC ENCEPHALOPATHY (3) Afib Assessment/Plan: -appreciate cardiology assistance -rate controlled -continue atenolol -continue eliquis Code(s): I48.91 - UNSPECIFIED ATRIAL FIBRILLATION Qualifiers: Atrial fibrillation type: chronic Qualified Code(s): I48.2 - Chronic atrial fibrillation (4) CHF (congestive heart failure) Assessment/Plan: -lasix held -will continue fluid at this time -will await cardiology to see when should restart lasix Code(s): I50.9 - HEART FAILURE, UNSPECIFIED Qualifiers: Congestive heart failure type: diastolic Congestive heart failure chronicity: chronic Qualified Code(s): I50.32 - Chronic diastolic (congestive ) heart failure (5) Chronic renal failure Assessment/Plan: -at baseline Code(s): N18.9 - CHRONIC KIDNEY DISEASE, UNSPECIFIED Qualifiers: Chronic kidney disease stage: unspecified stage Qualified Code(s): N18.9 - Chronic kidney disease, unspecified (6) HTN (hypertension) Assessment/Plan: -still low normal -will gently hydrate for a short time more -continue atenolol Code(s): I10 - ESSENTIAL (PRIMARY) HYPERTENSION (7) Hyperlipidemia Assessment/Plan: -continue crestor Code(s): E78.5 - HYPERLIPIDEMIA, UNSPECIFIED Dispo -possible discharge tomorrow
[2017-08-12] MEDS: DOCUSATE SODIUM 100 MG CAPSULE (FP) PO SCH ×2 (13:10→21:26)
[2017-08-12] MEDS: POLYETHYLENE GLYCOL 3350 119 GM BTL PO SCH ×2 (13:11→22:41)
[2017-08-12] MEDS: BETAMETHASONE DIP 0.05% TP LOTION 60 ML BOTTLE TP SCH ×2 (18:12→21:26)
[2017-08-12] MEDS: ROSUVASTATIN CA 20 MG TABLET (FP) PO SCH (21:25)
[2017-08-12] MEDS: MOMETASONE FUROATE 220 MCG/IH INHALER IH SCH (22:40)
[2017-08-13 07:19] LABS: EOSINOPHIL 1.4 % (0-4.5); MCH 30.4 pg (25.7-33.7); MCHC 33.1 g/dl (32.0-36.0); MEAN PLT VOLUME 8.9 fl (7.5-11.1); NEUTROPHILS 75.9 % (42.8-82.8); PLATELET COUNT 153 K/MM3 (134-434); RDW 13.7 % (11.6-15.6); WHITE BLOOD COUNT 4.8 K/mm3 (4.0-10.0)
[2017-08-13 07:43] LABS: ANION GAP 11 (8-16); CO2 20 mmol/L (21-32); MAGNESIUM 2.7 mg/dL (1.8-2.4)
[2017-08-13 07:48] LABS: CREATININE 1.4 mg/dL (0.55-1.02); GLUCOSE,RANDOM 109 mg/dL (74-106); PHOSPHOROUS 2.2 mg/dL (2.5-4.9)
[2017-08-13] MEDS ORDERED: PT OWN MED DRAWER 7, Y5N ONE (09:27)
[2017-08-13] MEDS: ATENOLOL 25 MG TABLET (FP) PO SCH (11:13)
[2017-08-13] MEDS: levETIRAcetam 250 MG TABLET (FP) PO SCH (11:14)
[2017-08-13] MEDS: SERTRALINE HCL 50 MG TABLET (FP) PO SCH (11:19)
[2017-08-13] MEDS: APIXABAN 2.5 MG TABLET PO SCH (11:19)
[2017-08-13] MEDS: DOCUSATE SODIUM 100 MG CAPSULE (FP) PO SCH (11:20)
[2017-08-13] MEDS: RANITIDINE HCL 150 MG TABLET (FP) PO SCH (11:20)
[2017-08-13] MEDS: BETAMETHASONE DIP 0.05% TP LOTION 60 ML BOTTLE TP SCH (11:20)
[2017-08-13] MEDS: POLYETHYLENE GLYCOL 3350 119 GM BTL PO SCH (11:26)
--- NOTE | 2017-08-13 12:59 | DS ---
Physical Examination Vital Signs: Vital Signs Temperature 36.9 C 08/13/17 11:04 Pulse Rate 88 08/13/17 11:04 Respiratory Rate 15 08/13/17 11:04 Blood Pressure 104/55 08/13/17 11:27 O2 Sat by Pulse Oximetry (%) 95 08/12/17 20:27 Constitutional: Yes: Well Nourished, No Distress, Calm Cardiovascular: Yes: Regular Rate and Rhythm. No: Gallop, Murmur, Rub Respiratory: Yes: Regular, CTA Bilaterally. No: Rales, Rhonchi, Wheezes Gastrointestinal: Yes: Normal Bowel Sounds, Soft. No: Distention, Tenderness Extremities: Yes: WNL Edema: No Labs: CBC, BMP 08/13/17 06:00 08/13/17 06:00 Discharge Summary Reason For Visit: A-FIB,SHORTNESS OF BREATH, DEHYDRATION Current Active Problems Altered mental status, unspecified (Acute) Dehydration (Acute) Hypotensive episode (Acute) Metabolic encephalopathy (Acute) Rapid atrial fibrillation (Acute) Seizure (Acute) Shortness of breath (Acute) Hospital Course: (1) Seizure Code(s): R56.9 - UNSPECIFIED CONVULSIONS (2) Metabolic encephalopathy Code(s): G93.41 - METABOLIC ENCEPHALOPATHY (3) Afib Code(s): I48.91 - UNSPECIFIED ATRIAL FIBRILLATION Qualifiers: Atrial fibrillation type: chronic Qualified Code(s): I48.2 - Chronic atrial fibrillation (4) CHF (congestive heart failure) Code(s): I50.9 - HEART FAILURE, UNSPECIFIED Qualifiers: Congestive heart failure type: diastolic Congestive heart failure chronicity: chronic Qualified Code(s): I50.32 - Chronic diastolic (congestive ) heart failure (5) Chronic renal failure Code(s): N18.9 - CHRONIC KIDNEY DISEASE, UNSPECIFIED Qualifiers: Chronic kidney disease stage: unspecified stage Qualified Code(s): N18.9 - Chronic kidney disease, unspecified (6) HTN (hypertension) Code(s): I10 - ESSENTIAL (PRIMARY) HYPERTENSION (7) Hyperlipidemia Code(s): E78.5 - HYPERLIPIDEMIA, UNSPECIFIED Ms Correa is a very pleasant 82 year old female who comes in with seizures. She was admitted and seen by neurology. She was started on keppra and did not have another seizure. She is to follow up with neurology and her PCP for possible change to paxil. She has a history of CHF, however had ARF on CKD and hypotension and her lasix was held. She was hydrated and this improved. Her lasix will be decreased to 20mg daily and should follow up with cardiology. She is safe for discharge home with home VNS 32 minutes spent in preparation of this discharge Condition: Stable - Instructions Diet, Activity, Other Instructions: resume previous diet and activity. Referrals: Pepe Jamison MD [Primary Care Provider] - Pepe Kaur MD [Staff Physician] - Darnell Jain MD [Staff Physician] - Disposition: VNS/HOME HEALTH CARE - Home Medications Comprehensive Discharge Medication List: Ambulatory Orders Apixaban [Eliquis] 2.5 mg PO BID 07/22/14 Betamethasone Dipr 0.05% Oint [Diprolene] 50 gm TP ASDIR PRN 02/05/15 Fluticasone Propionate [Flovent Diskus] 50 mcg IH BID 02/05/15 Sertraline HCl [Zoloft -] 50 mg PO DAILY 02/05/15 Hydrocortisone 2.5% Topical Cr [Anusol-Hc -] 1 applic TP BID #1 tube 04/27/15 Ferrous Sulfate [Feosol] 325 mg PO BID 12/30/15 Ranitidine HCl [Zantac] 150 mg PO ASDIR 12/30/15 Rosuvastatin [Crestor -] 20 mg PO HS #30 tablet 04/16/17 Atenolol [Tenormin -] 25 mg PO BID #60 tablet 08/13/17 Furosemide [Lasix] 20 mg PO DAILY #30 tablet 08/13/17 Levetiracetam [Keppra -] 250 mg PO BID #60 tablet 08/13/17 Potassium Chloride [K-Dur -] 10 meq PO DAILY #30 tablet.er 08/13/17
[2017-08-13 13:35] VITALS: TEMP 97.5
[2017-08-13 14:44] VITALS: BP 115/74; PULSE 95
== END 2017-08-13 14:55 | disposition home health service (06) | DRG 100 ==
LOC: JER 22:07 → JERBED 08-08 02:35 → UNDOADMIN 08-08 02:41 → JERBED 08-08 02:41 → J4W 08-08 11:30 → J7W 08-10 18:15
PROVIDERS: ADMIT Internal Medicine; ATTEND Internal Medicine
DX: R56.9 Unspecified convulsions (principal); G93.41 Metabolic encephalopathy; I13.0 Hypertensive heart and chronic kidney disease with heart failure and stage 1 through stage 4 chronic kidney disease, or unspecified chronic kidney disease; I50.32 Chronic diastolic (congestive) heart failure; N17.9 Acute kidney failure, unspecified; N18.9 Chronic kidney disease, unspecified; I48.2 Chronic atrial fibrillation; E86.0 Dehydration; E78.5 Hyperlipidemia, unspecified; I95.9 Hypotension, unspecified
CPT/HCPCS: 36415; 70450-TC; 71010-TC; 71020-TC; 72125-TC; 72170-TC; 76775-TC; 80048; 80053; 80061; 81003; 81015; 82550; 83721; 83735; 84100; 84484; 85025; 85027; 85610; 87040; 93005; 93010; 97116-GP; 97161-GP; 99284-25

== ENCOUNTER 2020-11-13 14:32 | Inpatient (IN) | payer OTHER, MEDICARE ==
[2020-11-13] MEDS ORDERED: SODIUM CHLORIDE IV ONE (15:17)
[2020-11-13 16:13] LABS: BASO % 0.9 % (0-2.0); EOS % 1.8 % (0-4.5); HEMATOCRIT 36.1 % (32.4-45.2); HEMOGLOBIN 11.9 GM/dL (10.7-15.3); LYMPH % 8.5 % (8-40); MCH 30.8 pg (25.7-33.7); MCHC 32.9 g/dl (32.0-36.0); MEAN CELL VOLUME 93.4 fl (80-96); MEAN PLT VOLUME 9.4 fl (7.5-11.1); MONO % 6.9 % (3.8-10.2); NEUT % 81.9 % (42.8-82.8); PLATELET COUNT 187 K/MM3 (134-434); RBC 3.86 M/mm3 (3.60-5.2); RDW 14.3 % (11.6-15.6); WHITE BLOOD COUNT 6.2 K/mm3 (4.0-10.0)
[2020-11-13 16:48] LABS: CHLORIDE 105 mmol/L (98-107); SODIUM 139 mmol/L (136-145)
[2020-11-13 16:51] LABS: ANION GAP 7 MMOL/L (8-16); BLOOD UREA NITROGEN 24.2 mg/dL (7-18); CO2 27 mmol/L (21-32); GLUCOSE,RANDOM 86 mg/dL (74-106)
[2020-11-13 16:54] LABS: CREATININE 1.6 mg/dL (0.55-1.3); INR 1.74 (0.83-1.09); PROTHROMBIN TIME (PATIENT) 21.1 SEC (9.7-13.0); SGOT/AST 22 U/L (15-37); SGPT/ALT 15 U/L (13-61)
[2020-11-13 16:55] LABS: BILIRUBIN,TOTAL 0.9 mg/dL (0.2-1); TOT PROT 7.9 g/dl (6.4-8.2)
[2020-11-13 16:56] LABS: ACTIVATED PTT 36.4 SECONDS (25.2-36.5)
[2020-11-13 16:57] LABS: ALK PHOS 89 U/L (45-117)
[2020-11-13 17:44] LABS: EPI CELLS 6 /uL (0-25.1); HYALINE CASTS 0 /uL (0-3.1); URINE APPEARANCE CLOUDY; URINE BACTERIA 40 /uL (0-1359); URINE BILIRUBIN NEGATIVE (NEGATIVE); URINE COLOR RED; URINE GLUCOSE (UA) NEGATIVE (NEGATIVE); URINE KETONE NEGATIVE (NEGATIVE); URINE LEUK ESTERASE TRACE (NEGATIVE); URINE NITRITE NEGATIVE (NEGATIVE); URINE PROTEIN 1+ (NEGATIVE); URINE RBC 14715 /uL (0-23.9); URINE WBC 30 /uL (0-25.8)
[2020-11-13] MEDS ORDERED: CEFTRIAXONE 1,000 MG in DEXTROSE 5%-WATER - 50 ML IVPB ONE (17:46)
[2020-11-13] MEDS ORDERED: CEFTRIAXONE 1 GM/50 ML BAG ONE (17:59)
[2020-11-13] MEDS ORDERED: AZITHROMYCIN IVPB 500 MG/250 ML BAG IVPB SCH (22:00)
[2020-11-13] MEDS ORDERED: AZITHROMYCIN IVPB 500 MG/250 ML BAG IVPB ONE (22:35)
[2020-11-14 09:01] LABS: BASO % 0.7 % (0-2.0); EOS % 2.3 % (0-4.5); HEMATOCRIT 34.9 % (32.4-45.2); HEMOGLOBIN 11.6 GM/dL (10.7-15.3); LYMPH % 8.9 % (8-40); MCH 31.1 pg (25.7-33.7); MCHC 33.4 g/dl (32.0-36.0); MEAN CELL VOLUME 93.2 fl (80-96); MONO % 5.8 % (3.8-10.2); NEUT % 82.3 % (42.8-82.8); PLATELET COUNT 167 K/MM3 (134-434); RBC 3.74 M/mm3 (3.60-5.2); RDW 14.5 % (11.6-15.6); WHITE BLOOD COUNT 5.6 K/mm3 (4.0-10.0)
[2020-11-14 09:14] LABS: POTASSIUM 3.7 mmol/L (3.5-5.1)
[2020-11-14 09:21] LABS: ALBUMIN 3.7 g/dl (3.4-5.0)
[2020-11-14 09:22] LABS: BLOOD UREA NITROGEN 23.8 mg/dL (7-18); CALCIUM 9.7 mg/dL (8.5-10.1)
[2020-11-14 09:23] LABS: BILIRUBIN,TOTAL 0.6 mg/dL (0.2-1); MAGNESIUM 2.4 mg/dL (1.8-2.4); TOT PROT 7.2 g/dl (6.4-8.2)
[2020-11-14 09:25] LABS: CHOLESTEROL 123 mg/dL (50-200); CREATININE 1.4 mg/dL (0.55-1.3); PHOSPHOROUS 3.1 mg/dL (2.5-4.9); TRIGLYCERIDES 110 mg/dL (0-150)
[2020-11-14 09:27] LABS: LDL CHOLESTEROL (ONLY SJRH) 66 mg/dL (5-100)
[2020-11-14 09:30] LABS: HDL CHOLESTEROL 37 mg/dL (40-60)
[2020-11-14] MEDS ORDERED: DOXYCYCLINE HYCLATE 100 MG CAPSULE PO SCH (10:00)
[2020-11-14] MEDS ORDERED: DOXYCYCLINE HYCLATE 100 MG CAPSULE PO ONE (10:18)
[2020-11-14] MEDS ORDERED: CEFTRIAXONE 1 GM/50 ML BAG ONE (10:18)
[2020-11-14] MEDS ORDERED: BETAMETHASONE DIPR 0.05% OINT 45 GM TUBE TP PRN (10:31)
[2020-11-14] MEDS: CEFTRIAXONE 1 GM in DEXTROSE 5%-WATER - 50 ML IVPB SCH (10:50)
[2020-11-14] MEDS: FAMOTIDINE 20 MG TABLET PO SCH (11:18)
[2020-11-14] MEDS ORDERED: ATENOLOL 25 MG TABLET (FP) PO SCH (22:00)
[2020-11-14] MEDS ORDERED: SODIUM CHLORIDE 0.9% 500 ML INFUS.BAG IV ONE (22:27)
[2020-11-14] MEDS: MOMETASONE FUROATE 220 MCG/IH INHALER IH SCH (22:52)
[2020-11-14] MEDS: levETIRAcetam 250 MG TABLET PO SCH (22:52)
[2020-11-14] MEDS: ROSUVASTATIN CA 10 MG TABLET (FP) PO SCH (22:52)
[2020-11-14 22:58] LABS: BASO % 0.4 % (0-2.0); EOS % 0.4 % (0-4.5); HEMATOCRIT 34.6 % (32.4-45.2); HEMOGLOBIN 11.4 GM/dL (10.7-15.3); MCHC 33.1 g/dl (32.0-36.0); MEAN CELL VOLUME 93.6 fl (80-96); MEAN PLT VOLUME 9.3 fl (7.5-11.1); MONO % 6.2 % (3.8-10.2); PLATELET COUNT 171 K/MM3 (134-434); RBC 3.69 M/mm3 (3.60-5.2); RDW 14.1 % (11.6-15.6); WHITE BLOOD COUNT 8.5 K/mm3 (4.0-10.0)
[2020-11-14 23:05] LABS: INR 1.46 (0.83-1.09); PROTHROMBIN TIME (PATIENT) 17.5 SEC (9.7-13.0)
[2020-11-14 23:06] LABS: EPI CELLS 5 /uL (0-25.1); HYALINE CASTS 54 /uL (0-3.1); URINE APPEARANCE TURBID; URINE BILIRUBIN 3+ (NEGATIVE); URINE COLOR RED; URINE GLUCOSE (UA) NEGATIVE (NEGATIVE); URINE KETONE NEGATIVE (NEGATIVE); URINE LEUK ESTERASE 2+ (NEGATIVE); URINE NITRITE POSITIVE (NEGATIVE); URINE PROTEIN 2+ (NEGATIVE); URINE RBC 7555 /uL (0-23.9); URINE UROBILINOGEN 0.2 mg/dL (0.2-1.0); URINE WBC 12 /uL (0-25.8)
[2020-11-14 23:17] LABS: POTASSIUM 4.5 mmol/L (3.5-5.1)
[2020-11-14 23:19] LABS: ALBUMIN 3.8 g/dl (3.4-5.0); CALCIUM 9.9 mg/dL (8.5-10.1)
[2020-11-14 23:20] LABS: BLOOD UREA NITROGEN 23.1 mg/dL (7-18)
[2020-11-14 23:23] LABS: CREATININE 1.6 mg/dL (0.55-1.3)
[2020-11-14 23:24] LABS: BILIRUBIN,TOTAL 0.8 mg/dL (0.2-1); TOT PROT 7.5 g/dl (6.4-8.2)
[2020-11-14 23:56] LABS: URINE BACTERIA 331.7 /uL (0-1359)
[2020-11-15 00:36] VITALS: BMI 20.2
[2020-11-15 07:31] LABS: BASO % 0.8 % (0-2.0); EOS % 2.2 % (0-4.5); HEMATOCRIT 32.1 % (32.4-45.2); HEMOGLOBIN 10.9 GM/dL (10.7-15.3); MCH 31.5 pg (25.7-33.7); MCHC 34.1 g/dl (32.0-36.0); MEAN CELL VOLUME 92.3 fl (80-96); MEAN PLT VOLUME 9.8 fl (7.5-11.1); MONO % 7.8 % (3.8-10.2); NEUT % 78.2 % (42.8-82.8); PLATELET COUNT 153 K/MM3 (134-434); RBC 3.47 M/mm3 (3.60-5.2); RDW 14.3 % (11.6-15.6); WHITE BLOOD COUNT 5.3 K/mm3 (4.0-10.0)
[2020-11-15 08:00] LABS: POTASSIUM 3.7 mmol/L (3.5-5.1)
[2020-11-15 08:12] LABS: CALCIUM 9.5 mg/dL (8.5-10.1)
[2020-11-15 08:13] LABS: BLOOD UREA NITROGEN 22.7 mg/dL (7-18)
[2020-11-15 08:16] LABS: CREATININE 1.3 mg/dL (0.55-1.3)
[2020-11-15] MEDS ORDERED: PT OWN MED DRAWER 7, Y5N ONE (09:36)
[2020-11-15] MEDS ORDERED: DEXTROSE 5%-WATER - 50 ML IVPB ONE (09:36)
[2020-11-15] MEDS ORDERED: cefTRIAXone SODIUM 1 GM VIAL ONE (09:36)
[2020-11-15] MEDS ORDERED: FUROSEMIDE 20 MG TABLET (FP) PO SCH (10:00)
[2020-11-15] MEDS: levETIRAcetam 250 MG TABLET PO SCH (10:00)
[2020-11-15] MEDS: POTASSIUM CHLORIDE TABS 10 MEQ TABLET.ER (FP) PO SCH (10:35)
[2020-11-15] MEDS: APIXABAN 2.5 MG TABLET PO SCH ×2 (10:35→21:08)
[2020-11-15] MEDS: CEFTRIAXONE 1 GM in DEXTROSE 5%-WATER - 50 ML IVPB SCH (10:35)
[2020-11-15] MEDS: SERTRALINE HCL 50 MG TABLET (FP) PO SCH (10:36)
[2020-11-15] MEDS: FAMOTIDINE 20 MG TABLET PO SCH (10:37)
[2020-11-15] MEDS ORDERED: ALBUTEROL SO4 2.5/IPRATROPIUM 0.5 INH SOL 3 ML VIAL.NEB. NEB PRN (11:56)
[2020-11-15] MEDS ORDERED: FUROSEMIDE 40 MG TABLET (FP) PO SCH (13:26)
[2020-11-15] MEDS: ATENOLOL 25 MG TABLET (FP) PO SCH (21:07)
[2020-11-15] MEDS: ROSUVASTATIN CA 10 MG TABLET (FP) PO SCH (21:08)
[2020-11-15] MEDS: MOMETASONE FUROATE 220 MCG/IH INHALER IH SCH (21:10)
[2020-11-16] MEDS: LEVOTHYROXINE NA 50 MCG TABLET (FP) PO SCH (06:14)
[2020-11-16 08:21] LABS: POTASSIUM 3.9 mmol/L (3.5-5.1)
[2020-11-16 08:25] LABS: BLOOD UREA NITROGEN 25.8 mg/dL (7-18)
[2020-11-16 08:26] LABS: CALCIUM 9.5 mg/dL (8.5-10.1); MAGNESIUM 2.3 mg/dL (1.8-2.4)
[2020-11-16 08:29] LABS: CREATININE 1.4 mg/dL (0.55-1.3)
[2020-11-16] MEDS ORDERED: DEXTROSE 5%-WATER - 50 ML IVPB ONE (09:59)
[2020-11-16] MEDS ORDERED: cefTRIAXone SODIUM 1 GM VIAL ONE (09:59)
[2020-11-16] MEDS: SERTRALINE HCL 50 MG TABLET (FP) PO SCH (10:57)
[2020-11-16] MEDS: POTASSIUM CHLORIDE TABS 10 MEQ TABLET.ER (FP) PO SCH (10:57)
[2020-11-16] MEDS: FUROSEMIDE 20 MG TABLET (FP) PO SCH (10:58)
[2020-11-16] MEDS: APIXABAN 2.5 MG TABLET PO SCH ×2 (10:58→22:15)
[2020-11-16] MEDS: ATENOLOL 25 MG TABLET (FP) PO SCH ×2 (10:58→22:13)
[2020-11-16] MEDS: CEFTRIAXONE 1 GM in DEXTROSE 5%-WATER - 50 ML IVPB SCH (10:58)
[2020-11-16] MEDS: FAMOTIDINE 20 MG TABLET PO SCH (10:58)
[2020-11-16 12:02] LABS: EOS % 4.6 % (0-4.5); HEMATOCRIT 33.6 % (32.4-45.2); LYMPH % 9.3 % (8-40); MCH 30.7 pg (25.7-33.7); MCHC 32.8 g/dl (32.0-36.0); MEAN CELL VOLUME 93.7 fl (80-96); MEAN PLT VOLUME 9.6 fl (7.5-11.1); MONO % 6.5 % (3.8-10.2); NEUT % 78.6 % (42.8-82.8); PLATELET COUNT 157 K/MM3 (134-434); RBC 3.59 M/mm3 (3.60-5.2); RDW 14.4 % (11.6-15.6); WHITE BLOOD COUNT 5.5 K/mm3 (4.0-10.0)
[2020-11-16] MEDS: ROSUVASTATIN CA 10 MG TABLET (FP) PO SCH (22:15)
[2020-11-16] MEDS: MOMETASONE FUROATE 220 MCG/IH INHALER IH SCH (22:17)
[2020-11-17] MEDS: LEVOTHYROXINE NA 50 MCG TABLET (FP) PO SCH (06:07)
[2020-11-17] MEDS ORDERED: cefTRIAXone SODIUM 1 GM VIAL ONE (09:29)
[2020-11-17] MEDS ORDERED: DEXTROSE 5%-WATER - 50 ML IVPB ONE (09:29)
[2020-11-17] MEDS: SERTRALINE HCL 50 MG TABLET (FP) PO SCH (09:41)
[2020-11-17] MEDS: APIXABAN 2.5 MG TABLET PO SCH (09:41)
[2020-11-17] MEDS: CEFTRIAXONE 1 GM in DEXTROSE 5%-WATER - 50 ML IVPB SCH (09:41)
[2020-11-17] MEDS: ATENOLOL 25 MG TABLET (FP) PO SCH (09:41)
[2020-11-17] MEDS: FUROSEMIDE 20 MG TABLET (FP) PO SCH (09:41)
[2020-11-17] MEDS: POTASSIUM CHLORIDE TABS 10 MEQ TABLET.ER (FP) PO SCH (09:41)
[2020-11-17] MEDS: FAMOTIDINE 20 MG TABLET PO SCH (09:41)
[2020-11-17 10:53] VITALS: BP 116/42; PULSE 72; TEMP 98
== END 2020-11-17 12:08 | disposition home or self-care (01) | DRG 315 ==
LOC: JER 14:32 → JERBED 17:36 → J4W 11-14 21:08
PROVIDERS: ADMIT Internal Medicine; ATTEND Student in an Organized Health Care Education/Training Program
DX: I95.9 Hypotension, unspecified (principal); I13.0 Hypertensive heart and chronic kidney disease with heart failure and stage 1 through stage 4 chronic kidney disease, or unspecified chronic kidney disease; I50.32 Chronic diastolic (congestive) heart failure; N39.0 Urinary tract infection, site not specified; J98.11 Atelectasis; I27.20 Pulmonary hypertension, unspecified; N18.9 Chronic kidney disease, unspecified; I48.91 Unspecified atrial fibrillation; R31.9 Hematuria, unspecified; I25.10 Atherosclerotic heart disease of native coronary artery without angina pectoris; E78.00 Pure hypercholesterolemia, unspecified; R55 Syncope and collapse; I44.7 Left bundle-branch block, unspecified; I65.22 Occlusion and stenosis of left carotid artery; I34.0 Nonrheumatic mitral (valve) insufficiency; E86.0 Dehydration; G40.909 Epilepsy, unspecified, not intractable, without status epilepticus; S00.33XA Contusion of nose, initial encounter; W18.30XA Fall on same level, unspecified, initial encounter; Y92.091 Bathroom in other non-institutional residence as the place of occurrence of the external cause; Z99.81 Dependence on supplemental oxygen; Z86.73 Personal history of transient ischemic attack (TIA), and cerebral infarction without residual deficits
CPT/HCPCS: 36415; 70450-TC; 70486-TC; 71045-TC-FY; 72125-TC; 72170-TC-FY; 76775-TC; 76856-TC; 80048; 80053; 80061; 81003; 82550; 83605; 83721; 83735; 83880; 84100; 84484; 85025; 85610; 85730; 86850; 86900; 86901; 87040; 87077; 87086; 93005; 93010; 93306-TC; 93880-TC; 97116-GP; 97161-GP; 99285-25; C9803; U0003

== ENCOUNTER 2022-03-16 13:13 | Emergency (ER) | payer OTHER, MEDICARE ==
[2022-03-16 13:44] VITALS: TEMP 97.9; BMI 21.4
[2022-03-16] MEDS ORDERED: ACETAMINOPHEN 1000 MG/100 ML BAG IVPB ONE (14:08)
[2022-03-16] MEDS ORDERED: ACETAMINOPHEN INJECTION 100 ML IVPB ONE (14:26)
[2022-03-16 14:45] LABS: VENOUS BASE EXCESS 0.1 mmol/L (-2-2); VENOUS O2 SATURATION 32.9 % (70-80); VENOUS PCO2 48.7 mmHg (38-52); VENOUS PH 7.349 (7.310-7.410)
[2022-03-16 14:46] LABS: BASO % 1.1 % (0-2.0); EOS % 1.7 % (0-4.5); HEMATOCRIT 37.3 % (32.4-45.2); HEMOGLOBIN 12.2 GM/dL (10.7-15.3); MCH 28.1 pg (25.7-33.7); MCHC 32.8 g/dl (32.0-36.0); MEAN CELL VOLUME 85.8 fl (80-96); MONO % 4.6 % (3.8-10.2); NEUT % 79.6 % (42.8-82.8); PLATELET COUNT 196 10^3/uL (134-434); RBC 4.35 M/mm3 (3.60-5.2); RDW 15.7 % (11.6-15.6); WHITE BLOOD COUNT 5.8 K/mm3 (4.0-10.0)
[2022-03-16 15:28] LABS: ALBUMIN 3.7 g/dl (3.4-5.0); CALCIUM 9.9 mg/dL (8.5-10.1)
[2022-03-16 15:29] LABS: BLOOD UREA NITROGEN 20.4 mg/dL (7-18)
[2022-03-16 15:29] LABS: INR 1.74 (0.83-1.09); PROTHROMBIN TIME (PATIENT) 20.1 SEC (9.7-13.0)
[2022-03-16 15:31] LABS: ACTIVATED PTT 31.6 SECONDS (25.2-36.5)
[2022-03-16 15:32] LABS: CREATININE 1.5 mg/dL (0.55-1.3)
[2022-03-16 15:33] LABS: TOT PROT 7.7 g/dl (6.4-8.2)
[2022-03-16 15:34] LABS: BILIRUBIN,TOTAL 0.7 mg/dL (0.2-1)
[2022-03-16 17:08] LABS: EPI CELLS 3 /uL (0-25.1); HYALINE CASTS 1 /uL (0-3.1); URINE APPEARANCE CLEAR; URINE BACTERIA 6 /uL (0-1359); URINE BILIRUBIN NEGATIVE (NEGATIVE); URINE COLOR YELLOW; URINE GLUCOSE (UA) NEGATIVE (NEGATIVE); URINE KETONE NEGATIVE (NEGATIVE); URINE LEUK ESTERASE NEGATIVE (NEGATIVE); URINE NITRITE NEGATIVE (NEGATIVE); URINE PROTEIN NEGATIVE (NEGATIVE); URINE RBC 320 /uL (0-23.9); URINE UROBILINOGEN 0.2 mg/dL (0.2-1.0); URINE WBC 18 /uL (0-25.8)
[2022-03-16 17:15] VITALS: BP 92/57; PULSE 74
[2022-03-16] MEDS ORDERED: LIDOCAINE 5% TOPICAL PATCH TP ONE (17:44)
[2022-03-16] MEDS ORDERED: LIDOCAINE 5% TOPICAL PATCH ONE (17:52)
[2022-03-17] MEDS ORDERED: LIDOCAINE PATCH REMOVAL MC SCH (06:00)
== END 2022-03-16 19:26 | disposition home or self-care (01) ==
LOC: JER 13:13
PROC: 3E033NZ Introduction of Analgesics, Hypnotics, Sedatives into Peripheral Vein, Percutaneous Approach (ICD-10-PCS; principal; 2022-03-16)
DX: Z04.3 Encounter for examination and observation following other accident (principal)
CPT/HCPCS: 36415; 70450-TC; 71045-TC-FY; 71250-TC; 72125-TC; 72170-TC-FY; 80053; 81003; 82550; 82553; 82803; 83605; 84484; 85025; 85610; 85730; 86850; 86900; 86901; 87086; 93005; 93010; 99285-25; C9803-CS; U0003; U0005

== ENCOUNTER 2022-07-04 14:50 | Observation (INO) | payer OTHER, MEDICARE ==
[2022-07-04 15:17] VITALS: BMI 18.8
[2022-07-04] MEDS ORDERED: PIPERACILLIN/TAZOBACTAM 4.5 GM VIAL IVPB ONE (16:07)
[2022-07-04] MEDS ORDERED: VANCOMYCIN 1,000 MG in DEXTROSE 5%-WATER - 250 ML IVPB ONE (16:07)
[2022-07-04] MEDS ORDERED: VANCOMYCIN/WATER FOR INJ (PEG) 1,000 MG/200 ML BAG IVPB ONE (16:50)
[2022-07-04] MEDS ORDERED: PIPERACILLIN/TAZOB 4.5 GM 4.5 GM/100 ML BAG IVPB ONE (16:50)
[2022-07-04 18:28] LABS: BASO % 0.7 % (0-2.0); EOS % 0.8 % (0-4.5); HEMOGLOBIN 11.6 GM/dL (10.7-15.3); LYMPH % 13.5 % (8-40); MCH 29.3 pg (25.7-33.7); MCHC 32.3 g/dl (32.0-36.0); MEAN CELL VOLUME 90.8 fl (80-96); MEAN PLT VOLUME 9.7 fl (7.5-11.1); MONO % 5.3 % (3.8-10.2); NEUT % 79.7 % (42.8-82.8); PLATELET COUNT 250 10^3/uL (134-434); RBC 3.97 M/mm3 (3.60-5.2); RDW 14.8 % (11.6-15.6); WHITE BLOOD COUNT 5.9 K/mm3 (4.0-10.0)
[2022-07-04 18:36] LABS: INR 2.31 (0.83-1.09); PROTHROMBIN TIME (PATIENT) 26.8 SEC (9.7-13.0)
[2022-07-04 18:38] LABS: ACTIVATED PTT 40.8 SECONDS (25.2-36.5)
[2022-07-04 18:57] LABS: ALBUMIN 3.7 g/dl (3.4-5.0); BLOOD UREA NITROGEN 35.6 mg/dL (7-18); CALCIUM 10.7 mg/dL (8.5-10.1)
[2022-07-04 19:01] LABS: BILIRUBIN,TOTAL 0.8 mg/dL (0.2-1); CREATININE 1.8 mg/dL (0.55-1.3); TOT PROT 8.4 g/dl (6.4-8.2)
[2022-07-04 19:18] LABS: LACTIC ACID 2.3 mmol/L (0.4-2.0)
[2022-07-04] MEDS ORDERED: SODIUM CHLORIDE 0.9% 500 ML INFUS.BAG IV ONE (20:29)
[2022-07-05] MEDS: SODIUM CHLORIDE 1,000 ML IV SCH ×3 (02:44→23:44)
[2022-07-05] MEDS ORDERED: LEVOTHYROXINE NA 50 MCG TABLET (FP) ONE (07:14)
[2022-07-05] MEDS: LEVOTHYROXINE NA 50 MCG TABLET (FP) PO SCH (07:21)
[2022-07-05 07:36] LABS: BLOOD UREA NITROGEN 33.5 mg/dL (7-18); MAGNESIUM 2.4 mg/dL (1.8-2.4)
[2022-07-05 07:39] LABS: CREATININE 1.8 mg/dL (0.55-1.3); PHOSPHOROUS 2.8 mg/dL (2.5-4.9)
[2022-07-05 07:41] LABS: BILIRUBIN,TOTAL 0.6 mg/dL (0.2-1)
[2022-07-05 07:55] LABS: ALBUMIN 2.7 g/dl (3.4-5.0); CALCIUM 8.9 mg/dL (8.5-10.1); EOS % 1.6 % (0-4.5); HEMATOCRIT 30.7 % (32.4-45.2); LYMPH % 12.8 % (8-40); MCH 29.7 pg (25.7-33.7); MCHC 32.6 g/dl (32.0-36.0); MEAN PLT VOLUME 9.6 fl (7.5-11.1); MONO % 5.6 % (3.8-10.2); PLATELET COUNT 198 10^3/uL (134-434); RBC 3.38 M/mm3 (3.60-5.2); RDW 14.8 % (11.6-15.6); WHITE BLOOD COUNT 5.8 K/mm3 (4.0-10.0)
[2022-07-05] MEDS ORDERED: ASPIRIN COATED 81 MG TABLET.EC ONE (09:03)
[2022-07-05] MEDS ORDERED: APIXABAN 2.5 MG TABLET ONE (09:03)
[2022-07-05] MEDS ORDERED: POTASSIUM CHLORIDE TABS 10 MEQ TABLET.ER (FP) ONE (09:04)
[2022-07-05] MEDS ORDERED: SERTRALINE HCL 50 MG TABLET (FP) ONE (09:04)
[2022-07-05] MEDS ORDERED: FERROUS SO4 325 MG TABLET (FP) ONE (09:04)
[2022-07-05] MEDS ORDERED: ATENOLOL 25 MG TABLET (FP) ONE (09:04)
[2022-07-05] MEDS: APIXABAN 2.5 MG TABLET PO SCH ×2 (09:12→21:57)
[2022-07-05] MEDS ORDERED: SERTRALINE HCL 50 MG TABLET (FP) PO SCH (10:00)
[2022-07-05] MEDS ORDERED: ATENOLOL 25 MG TABLET (FP) PO SCH (10:00)
[2022-07-05] MEDS ORDERED: ASPIRIN COATED 81 MG TABLET.EC PO SCH (10:00)
[2022-07-05] MEDS ORDERED: POTASSIUM CHLORIDE TABS 10 MEQ TABLET.ER (FP) PO SCH (10:00)
[2022-07-05] MEDS ORDERED: FERROUS SO4 325 MG TABLET (FP) PO SCH (10:00)
[2022-07-05] MEDS ORDERED: SODIUM CHLORIDE 1,000 ML IV STA ×2 (10:22→22:15)
[2022-07-05] MEDS: POTASSIUM CHLORIDE ORAL LIQUID 20 MEQ/15 ML PO SCH ×2 (10:57→21:57)
[2022-07-05] MEDS: AMINO ACIDS/PROTEIN HYDROLYS 30 ML LIQUID.PKT PO SCH ×2 (13:05→17:20)
[2022-07-05] MEDS ORDERED: ROSUVASTATIN CA 10 MG TABLET PO SCH (22:00)
[2022-07-06] MEDS ORDERED: SODIUM CHLORIDE 250 ML IV STA ×2 (01:24→03:21)
[2022-07-06] MEDS ORDERED: PIPERACILLIN/TAZOB 2.25 GM 2.25 GM in DEXTROSE 5%-WATER - 50 ML IVPB ONE (01:46)
[2022-07-06] MEDS ORDERED: VANCOMYCIN/WATER FOR INJ (PEG) 1,000 MG/200 ML BAG IVPB ONE (02:00)
[2022-07-06 02:28] LABS: BASO % 0.7 % (0-2.0); EOS % 0.8 % (0-4.5); HEMATOCRIT 30.3 % (32.4-45.2); HEMOGLOBIN 9.6 GM/dL (10.7-15.3); LYMPH % 13.4 % (8-40); MCH 29.3 pg (25.7-33.7); MCHC 31.7 g/dl (32.0-36.0); MEAN CELL VOLUME 92.5 fl (80-96); MEAN PLT VOLUME 9.5 fl (7.5-11.1); MONO % 4.3 % (3.8-10.2); NEUT % 80.8 % (42.8-82.8); PLATELET COUNT 228 10^3/uL (134-434); RBC 3.27 M/mm3 (3.60-5.2); RDW 14.8 % (11.6-15.6); WHITE BLOOD COUNT 6.8 K/mm3 (4.0-10.0)
[2022-07-06 02:51] LABS: ALBUMIN 2.6 g/dl (3.4-5.0); BLOOD UREA NITROGEN 34.9 mg/dL (7-18); CALCIUM 8.9 mg/dL (8.5-10.1)
[2022-07-06 02:54] LABS: CREATININE 1.6 mg/dL (0.55-1.3)
[2022-07-06 02:56] LABS: BILIRUBIN,TOTAL 0.7 mg/dL (0.2-1); TOT PROT 5.8 g/dl (6.4-8.2)
[2022-07-06 03:04] LABS: LACTIC ACID 2.6 mmol/L (0.4-2.0)
[2022-07-06] MEDS ORDERED: ACETAMINOPHEN 1000 MG/100 ML BAG IVPB ONE (05:04)
[2022-07-06] MEDS: LEVOTHYROXINE NA 50 MCG TABLET (FP) PO SCH (06:28)
[2022-07-06] MEDS ORDERED: SODIUM CHLORIDE 1,000 ML IV SCH (07:45)
[2022-07-06] MEDS ORDERED: MIDODRINE HCL 5 MG TABLET PO SCH (08:00)
[2022-07-06] MEDS ORDERED: CEFTRIAXONE 1 GM in DEXTROSE 5%-WATER - 50 ML IVPB SCH (10:00)
[2022-07-06] MEDS: AMINO ACIDS/PROTEIN HYDROLYS 30 ML LIQUID.PKT PO SCH (10:18)
[2022-07-06 10:22] VITALS: BP 109/80; PULSE 123; RESP 28; TEMP 95.5
[2022-07-07] MEDS ORDERED: AZITHROMYCIN IVPB 500 MG/250 ML BAG IVPB SCH (10:00)
== END 2022-07-06 12:26 | disposition expired ==
LOC: JER 14:50 → JERBED 07-05 01:04 → UNDOADMOB 07-05 01:04 → INTOOBSV 07-05 01:04 → JERBED 07-05 09:43 → J5S 07-05 09:43 → JERBED 07-05 11:01 → J5S 07-05 11:01
PROVIDERS: ADMIT Internal Medicine; ATTEND Nurse Practitioner Acute Care
PROC: 3E033NZ Introduction of Analgesics, Hypnotics, Sedatives into Peripheral Vein, Percutaneous Approach (ICD-10-PCS; principal; 2022-07-05)
PROC: 3E03329 Introduction of Other Anti-infective into Peripheral Vein, Percutaneous Approach (ICD-10-PCS; 2022-07-05)
PROC: 3E0337Z Introduction of Electrolytic and Water Balance Substance into Peripheral Vein, Percutaneous Approach (ICD-10-PCS; 2022-07-05)
DX: I13.10 Hypertensive heart and chronic kidney disease without heart failure, with stage 1 through stage 4 chronic kidney disease, or unspecified chronic kidney disease; E03.9 Hypothyroidism, unspecified; Z66 Do not resuscitate; I48.91 Unspecified atrial fibrillation; Z79.01 Long term (current) use of anticoagulants; Z91.81 History of falling; F03.90 Unspecified dementia, unspecified severity, without behavioral disturbance, psychotic disturbance, mood disturbance, and anxiety; N18.9 Chronic kidney disease, unspecified; E43 Unspecified severe protein-calorie malnutrition; Z78.9 Other specified health status; Z29.8 Encounter for other specified prophylactic measures; E46 Unspecified protein-calorie malnutrition; Z68.1 Body mass index [BMI] 19.9 or less, adult
CPT/HCPCS: 0241U-QW; 36415; 70450-TC; 71045-TC-FY; 74150-TC; 80053; 82962; 83605; 83735; 84100; 84443; 84484; 85025; 85610; 85730; 87040; 93005; 93010; 96361; 96365; 96375; 99285-25; G0378